=== PATIENT | female | born 1960 | race Caucasian/White ===

== ENCOUNTER 2019-09-19 09:57 | Outpatient (CLI) | payer BC, MEDICARE, SELFPAY ==
--- NOTE | ~2019-09-19 | MM_ITS ---
EXAMINATION: MM screening vijay BI w zamzam HISTORY: Screening mammogram TECHNIQUE: Craniocaudal and mediolateral oblique 3-D tomosynthesis images were obtained and synthetic 2-D images were generated. CAD analysis was submitted and interpreted. COMPARISON: 09/15/2018 bilateral digital screening mammogram 09/04/2017, 03/04/2017, 08/27/2016 bilateral diagnostic digital mammogram and Limited bilateral breast u ltrasound examinations 08/22/2015 bilateral digital screening mammogram BREAST PARENCHYMAL COMPOSITION: There are scattered areas of fibroglandular density. FINDINGS: There are 3 biopsy markers on the left; history of 3 prior benign breast biopsies. There is no evidence of suspicious mass, calcification, or architectural distortion to suggest malignancy in either breast. There has been no suspicious interval change. IMPRESSION: 1. No mammographic evidence of malignancy. 2. Recommend routine screening mammography in one year. BI-RADS Category 1: Negative Reviewed, dictated and finalized at location B. F DEVELOPMENT COORDINATOR
== END 2019-09-19 09:58 | disposition home or self-care (01) ==
LOC: ANHIMG 10:07
PROVIDERS: PCP Emergency Medicine; Visit Provider Emergency Medicine
DX: Z12.31 Encounter for screening mammogram for malignant neoplasm of breast (principal)
CPT/HCPCS: 77063; 77067

== ENCOUNTER 2020-01-25 17:51 | Outpatient (CLI) | payer BC, MEDICARE, SELFPAY ==
--- NOTE | ~2020-01-25 | XR_ITS ---
EXAMINATION: XR knee LT 2V DATE: 01/25/2020 18:15 INDICATION: Left knee pain. TECHNIQUE: 2 views of left knee were obtained. COMPARISON: None. FINDINGS: Bone alignment is normal. No fracture. Joint spaces are normal. No knee joint effusion. IMPRESSION: 1. Normal left knee. Reviewed, dictated and finalized at location A. IMPRESSION: 1. Normal left knee.
== END 2020-01-25 17:52 | disposition home or self-care (01) ==
PROVIDERS: PCP Emergency Medicine; Visit Provider Emergency Medicine
DX: M25.562 Pain in left knee (principal)
CPT/HCPCS: 73560

== ENCOUNTER 2020-02-06 17:18 | Outpatient (CLI) | payer BC, MEDICARE, SELFPAY ==
--- NOTE | ~2020-02-06 | MR_ITS ---
EXAMINATION: MR knee LT wo/w con DATE: 02/06/2020 18:41 INDICATION: Left knee pain TECHNIQUE: Magnetic resonance imaging (MRI) of the left knee was performed without intravenous contra st. Sequences included coronal PD-weighted FSE, coronal PD-weighted FS FSE, sagittal T2-weighted FSE , sagittal PD-weighted FS FSE, axial PD weighted fat saturated FSE, axial T1-weighted FSE, axial T1-w eighted FS FSE and postcontrast axial and sagittal T1-weighted FS FSE . COMPARISON: None. FINDINGS: Medial compartment: Longitudinal horizontal tear contacting the inferior articular surface at the posterior horn of the m edial meniscus. Articular cartilage is normal. Lateral compartment: Lateral meniscus is normal. Articular cartilage is normal. Patellofemoral compartment: Subchondral fissuring along the patellar apical ridge with minimal underlying subarticular edema. Tro chlear cartilage is normal. Ligaments and tendons: Anterior and posterior cruciate ligaments are normal. The medial collateral ligament and fibular gladys ateral ligament complex are normal. The extensor mechanism is normal. The visualized medial and later al hamstring tendons as well as the iliotibial band are normal. Fluid: Physiologic amount of fluid in the joint space. No loose osteochondral bodies identified. Osseous/other: Aside from the minimal subarticular edema at the patella there is normal marrow signal throughout.. N o fracture or pathologic marrow replacing process. No abnormally enhancing lesions identified. IMPRESSION: 1. Likely degenerative longitudinal horizontal tear at the posterior horn of the medial meniscus. 2. 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 Reviewed, dictated and finalized at location A. IMPRESSION: 1. Likely degenerative longitudinal horizontal tear at the posterior horn of th e medial meniscus. 2. 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
[2020-02-06 18:11] LABS: Estimated Glomerular Filt Rate 56
== END 2020-02-06 17:19 | disposition home or self-care (01) ==
PROVIDERS: PCP Emergency Medicine; Visit Provider Emergency Medicine
DX: M25.562 Pain in left knee (principal); S83.242A Other tear of medial meniscus, current injury, left knee, initial encounter; M94.262 Chondromalacia, left knee
CPT/HCPCS: 36415; 73723; A9577

== ENCOUNTER 2020-09-26 08:31 | Outpatient (CLI) | payer BC, MEDICARE, SELFPAY ==
--- NOTE | ~2020-09-26 | MM_ITS ---
EXAMINATION: MM screening vijay BI w zamzam HISTORY: Screening mammogram TECHNIQUE: Craniocaudal and mediolateral oblique 3-D tomosynthesis images were obtained and synthetic 2-D images were generated. CAD analysis was submitted and interpreted. COMPARISON: September 19, 2019 bilateral digital screening mammogram 09/15/2018 bilateral digital screening mammogram 09/04/2017 and 08/27/2016 bilateral diagnostic digital mammogram and Limited bilateral breast ultrasoun d 08/22/2015 bilateral digital screening mammogram BREAST PARENCHYMAL COMPOSITION: There are scattered areas of fibroglandular density. FINDINGS: 3 biopsy markers are again noted on the left; history of 3 prior benign breast biopsies. Some subtle microcalcifications are suggested posteriorly in the outer right breast on craniocaudal v iew; diagnostic right mammogram with magnification views is recommended for more definitive evaluatio n. Otherwise there Is no evidence of suspicious mass, calcification, or architectural distortion to sugg est malignancy in either breast. There has been no other suspicious interval change. IMPRESSION: 1. Subtle microcalcification suggested posteriorly in the outer right breast on screening craniocauda l view 2. Diagnostic right mammogram with magnification views is recommended. BI-RADS Category 0: Incomplete: Needs additional imaging evaluation. Reviewed, dictated and finalized at location A. CONDUCTOR ENGINEER IMPRESSION: 1. Subtle microcalcification suggested posteriorly in the outer right breast on screening craniocaudal view 2. Diagnostic right mammogram with magnification views is recommended. BI-RADS Category 0: Incomplete: Needs additional imaging evaluation.
== END 2020-09-26 08:32 | disposition home or self-care (01) ==
LOC: ANHIMG 08:33
PROVIDERS: PCP Emergency Medicine; Visit Provider Emergency Medicine
DX: Z12.31 Encounter for screening mammogram for malignant neoplasm of breast (principal); R92.8 Other abnormal and inconclusive findings on diagnostic imaging of breast
CPT/HCPCS: 77063; 77067

== ENCOUNTER 2020-09-28 10:28 | Outpatient (CLI) | payer BC, MEDICARE, SELFPAY ==
--- NOTE | 2020-09-28 10:31 | ECG_ITS ---
Measurements Intervals [place] Rate: 69 P: 65 ID: 189 QRS: 48 QRSD: 85 T: 58 QT: 374 QTc: 401 Interpretive Statements SINUS RHYTHM DELAYED PRECORDIAL R/S TRANSITION BASELINE ARTIFACT- I, II, III, AVR, AVL BORDERLINE ECG Electronically Signed On 09-28-2020 11:49:40 PARAFFINER by Dariel Davies D.O.
== END 2020-09-28 10:29 | disposition home or self-care (01) ==
PROVIDERS: PCP Emergency Medicine; Visit Provider Orthopaedic Surgery
DX: E78.00 Pure hypercholesterolemia, unspecified (principal); I10 Essential (primary) hypertension; Z01.818 Encounter for other preprocedural examination; R94.31 Abnormal electrocardiogram [ECG] [EKG]
CPT/HCPCS: 93005

== ENCOUNTER → 2020-09-29 00:27 | Outpatient (CLI) | payer BC, MEDICARE, SELFPAY ==
[2020-09-29 19:48] LABS: SARS-CoV-2 RNA PCR Negative
== END ==
PROVIDERS: PCP Emergency Medicine; Visit Provider Orthopaedic Surgery
DX: Z01.812 Encounter for preprocedural laboratory examination (principal); Z20.822 Contact with and (suspected) exposure to COVID-19
CPT/HCPCS: C9803; U0003; U0005

== ENCOUNTER 2020-10-03 00:54 | Day surgery (SDC) | payer BC, MEDICARE, SELFPAY ==
[2020-09-26 16:19] VITALS: BMI 28.9
--- NOTE | 2020-09-26 16:26 | PC.NURSE ---
PT STATES SHE HAD A BAD EXPERIENCE WITH ANESTHESIA IN THE PAST AT [facility]. SHE HAS A COPY OF THE ANESTHESIA RECORD FROM HER MOST RECENT SURGERY AT [facility] THAT WENT WELL . PT VERY NERVOUS REGARDING ANESTHESIA. PT ALSO STATES SHE HAS CRUTCHES BUT NEEDS CRUTCH TRAINING.
--- NOTE | 2020-10-02 12:23 | WPDANESEPPF ---
Anes - Initial Pre Proc Eval Procedure: Operation Date: 10/03/20 10:30 Proposed Procedures p Left Knee Arthroscopy, Proceed As Indicated - Mando Kumar MD Date/Time: 10/02/20 12:23 Surgeon: Mando Kumar MD Pre Op Diagnosis: Left Knee Medial Meniscus Tear Patient Data Age: 60 Gender: F Height: 1.6 m Weight: 74 kg Allergies Allergy/AdvReac Type Severity Reaction Status Date / Time codeine Allergy Severe Swelling Verified 10/03/20 08:35 desvenlafaxine [From Pristiq] Allergy Severe Swelling Verified 10/03/20 08:35 escitalopram Allergy Severe Swelling Verified 10/03/20 08:35 hydrocodone AdvReac Severe Nausea and Verified 10/03/20 08:35 Vomiting heparin AdvReac Intermediate Unknown Verified 10/03/20 08:35 Heparin Analogues AdvReac Unknown Unknown Verified 10/03/20 08:35 Home Medications Medication Instructions Recorded Confirmed Type cholecalciferol (vitamin D3) 50 5,000 unit PO DAILY 09/20/19 09/26/20 History mcg (2,000 unit) capsule albuterol sulfate 90 mcg/actuation See Rx Instructions .ROUTE 11/10/19 09/26/20 Rx aerosol inhaler .COMPLEX #8.5 gm metoprolol succinate 12.5 mg PO BID PRN 08/23/20 09/26/20 History vitamin B complex 1 tablet PO DAILY 08/23/20 09/26/20 History chlorhexidine gluconate 4 % 1 applic TOPICAL ONCE #237 ml 08/29/20 Rx topical liquid aspirin [Adult Low Dose Aspirin] 81 mg PO DAILY 09/26/20 09/26/20 History naproxen sodium [Aleve] 220 mg PO BID PRN 09/26/20 09/26/20 History Patient hx anesthesia problems: post op nausea/vomiting Family hx anesthesia problems: none PMFSH Past Medical History Medical History Abnormality of heart beat Anxiety Asthma Chronic fatigue Chronic, continuous use of opioids Claustrophobia Depression Fibromyalgia History of adverse effect of anesthesia PVC's (premature ventricular contractions) Wears glasses Surgical History Surgical History History of fusion of cervical spine History of lumbar discectomy Family History Family History Father Malignant neoplasm of prostate Grandparent Family history of malignant neoplasm of cervix Sibling Family history of malignant neoplasm of breast in first degree relative Mother Patient's mother is in good health Other High cholesterol History of esophageal cancer Hypertension Neuropathy Social History Social History Smoking status: Never smoker Second hand tobacco smoke exposure: No Alcohol intake: never Substance use: never Substance use type: does not use Living arrangements: with family Gender identity (if verbalized by the patient): Female Spiritual care concerns: No Anes - Eval Final PreProcedure Day of Procedure 10/02/20 12:23 Patient weight: overweight Heart: regular rate and rhythm Lungs: clear to auscultation and normal air movement Airway: Mallampati scale class II Neurological: alert and oriented Last oral intake: >/= 8 hours ASA classification: III Emergent: no Anesthetic plan: proceed Anesthesia type and monitoring: general LMA and standard monitoring Informed Consent: The patient's anesthetic plan and its attendant risks and benefits were discussed with the patient/family/POA. Questions were solicited and answers provided to the satisfaction of the patient/family/POA.
[2020-10-03] VITALS (11 sets, daily range): BP systolic 100–142; BP diastolic 60–88; PULSE 57–95; RESP 10–20; TEMP 36.1–36.6; O2SAT 96–100
--- NOTE | 2020-10-03 08:02 | PM.IMHP ---
H&P: HPI History of Present Illness Date/Time: 10/03/20 at 0804 Knee Injury/Condition Pt presents with left knee pain that has been present for approx 10 months. She states she was hiking, in October, and twisted her knee at that time. She is experiencing pain in the medial, anterior region of the knee. She occasionally wears an OTC knee brace. She had an MRI 02/06/20. She has been doing exercises at home and has noticed an improvement in her level of pain. Date of injury/condition: 11/01/19 Current symptoms: Reports giving way and stiffness Location: medial, anterior and inferior Character: intermittent, throbbing and dull ache Onset: 7-12 months Exacerbated by: squatting, rotational activities and prolonged activity Previous treatments: Anti-inflammatory meds: left, Ice: left, Heat: left and other: left (home exercises) Improved by treatment/surgery: some Chief Complaint: left knee pain Review of Systems Review of Systems: All systems reviewed & are unremarkable except as noted in HPI and below Constitutional: Constitutional: Denies headache(s) and Denies weakness Eyes: Eyes: Denies blurry vision, Denies change in vision and Denies loss of vision ENT: Denies dizziness, Denies dry mouth, Denies headache(s) and Denies nasal congestion Cardiovascular: Cardiovascular: Denies chest pain, Denies syncope, Denies leg edema and Denies dyspnea on exertion Respiratory: Respiratory: Denies cough and Denies dyspnea on exertion Gastrointestinal: Gastrointestinal: Denies abdominal pain, Denies constipation and Denies diarrhea Genitourinary: Genitourinary: Denies urinary frequency Musculoskeletal: Musculoskeletal: Reports as per HPI and Denies numbness Integumentary/Breasts: Skin/Breast: Reports system reviewed and no additional complaints, except as docu Neurologic: Denies dizziness, Denies syncope, Denies headache(s), Denies loss of vision, Denies numbness and Denies weakness Psychiatric: Psychiatric: Reports no additional psychiatric complaints Endocrine: Endocrine: Reports no additional endocrine complaints Hematologic/Lymphatic: Hematologic/Lymphatic: Reports no additional hematologic/lymphatic complaints PMFSH Past Medical History Medical History Abnormality of heart beat Anxiety Asthma Chronic fatigue Chronic, continuous use of opioids Claustrophobia Depression Fibromyalgia History of adverse effect of anesthesia PVC's (premature ventricular contractions) Wears glasses Surgical History Surgical History History of fusion of cervical spine History of lumbar discectomy Family History Family History Father Malignant neoplasm of prostate Grandparent Family history of malignant neoplasm of cervix Sibling Family history of malignant neoplasm of breast in first degree relative Mother Patient's mother is in good health Other High cholesterol History of esophageal cancer Hypertension Neuropathy Social History Social History Smoking status: Never smoker Second hand tobacco smoke exposure: No Alcohol intake: never Substance use: never Substance use type: does not use Living arrangements: with family Gender identity (if verbalized by the patient): Female Spiritual care concerns: No Meds Home Medications and Allergies Home Medications Medication Instructions Recorded Confirmed Type cholecalciferol (vitamin D3) 50 5,000 unit PO DAILY 09/20/19 09/26/20 History mcg (2,000 unit) capsule albuterol sulfate 90 mcg/actuation See Rx Instructions .ROUTE 11/10/19 09/26/20 Rx aerosol inhaler .COMPLEX #8.5 gm metoprolol succinate 12.5 mg PO BID PRN 08/23/20 09/26/20 History vitamin B complex 1 tablet PO DAILY 08/23/20 09/26/20 History chlorhexidine gluconate 4 % 1 applic TOPICAL ONC
--- NOTE | 2020-10-03 08:05 | WPDHPUPDATE1 ---
History and Physical Update Update Date/Time: 10/03/20 08:05 History and Physical has been reviewed, including an updated exam of the patient. There are NO changes in the patient's condition. Risks, benefits, and alternatives have been discussed and questions answered. Patient agrees to proceed with procedure.
[2020-10-03] MEDS: LACTATED RINGERS 1,000 ML 30 ML IV CONT ×2 (09:03→12:58)
[2020-10-03] MEDS: ACETAMINOPHEN 500 MG TABLET 1000 MG PO (09:03)
[2020-10-03] MEDS: CELECOXIB 200 MG CAPSULE PO (09:03)
[2020-10-03] MEDS: FAMOTIDINE 20 MG/2 ML VIAL IV PUSH (09:46)
[2020-10-03] MEDS: SCOPOLAMINE 1.5 MG PATCH TRANSDERM (09:46)
[2020-10-03] MEDS: ceFAZolin 2 GM/D5W 50 ML 2 GM/50 ML BAG IVPB (11:44)
[2020-10-03] MEDS: BUPIVACAINE HCL 0.5% PF 30 ML VIAL INFILTRATE (12:00)
[2020-10-03] MEDS: fentaNYL CITRATE INJ (*CRX) 100 MCG/2 ML VIAL 25 MCG IV PUSH ×5 (13:37→14:25)
--- NOTE | 2020-10-03 14:06 | PM.PROC ---
Procedure Note - Detailed Date of procedure: 10/03/20 Pre-op diagnosis: Left Knee Medial Meniscus Tear Post-op diagnosis: same Procedure performed: LEFT KNEE SCOPE WITH PARTIAL MEDIAL MENISCECTOMY AND MAJOR SYNOVECTOMY Description of procedure: PATIENT WAS TAKEN TO THE OR. LEFT LEG WAS PREPPED AND DRAPED STERILE. TROCARS WERE PLACED IN THE USUAL FASHION. CAMERA WAS INTRODUCED. THERE WAS MILD CHONDROMALACIA TO THE PATELLA FEMORAL JOINT. THERE WAS A LOT OF SYNOVITIS IN ALL COMPARTMENTS. THE MEDIAL COMPARTMENT SHOWED CHONDROMALACIA TO THE MED FEMORAL CONDYLE. A SHAVER WAS USED TO PREFORM A CHONDROPLASTY. THERE WAS A COMPLEX MEDIAL MENISCUS TEAR. THE TEAR WAS RESECTED WITH A BITER AND A SHAVER DOWN TO A SMOOTH BASE. ABOUT 20% OF THE MENISCUS WAS REMOVED. THE ACL WAS INTACT. THE LATERAL MENISCUS WAS NOT TORN. THE LAT COMPARTMENT HAD NO CHONDROMALACIA. A SYNOVECTOMY WAS PREFORMED. THE PATELLO FEMORAL JOINT UNDERWENT CHONDROPLASTY. SYNOVECTOMY WAS PREFORMED IN THE SUPERIOR MEDIAL COMPARTMENT. THE WOUNDS WERE APPROXIMATED WITH 4.0 NYLON. STERILE DRESSING WAS APPLIED. PATIENT WAS EXTUBATED. Anesthesia: GLMA Surgeon: Mando Kumar MD Estimated blood loss (mL): 5 Complications: No immediate complications Condition: stable Disposition: PACU
== END 2020-10-03 15:45 | disposition home or self-care (01) ==
PROVIDERS: PCP Emergency Medicine; Visit Provider Orthopaedic Surgery
PROC: (CPT 29870; principal; 2020-10-03 10:30)
DX: S83.232A Complex tear of medial meniscus, current injury, left knee, initial encounter (principal); X50.0XXA Overexertion from strenuous movement or load, initial encounter; Y93.01 Activity, walking, marching and hiking; M65.862 Other synovitis and tenosynovitis, left lower leg; M94.262 Chondromalacia, left knee; I49.3 Ventricular premature depolarization; J45.909 Unspecified asthma, uncomplicated; M79.7 Fibromyalgia; F41.8 Other specified anxiety disorders; Z98.1 Arthrodesis status
CPT/HCPCS: 29881; 29876; 93005; A9270; C9803; J0690; J1100; J1200; J2250; J2405; J2704; J3010; J7120; U0003; U0005

== ENCOUNTER 2020-11-12 11:21 | Outpatient (CLI) | payer BC, MEDICARE, SELFPAY ==
--- NOTE | ~2020-11-12 | MM_ITS ---
CORRECTED REPORT w/ zamzam removed. 11/12/20 sef EXAMINATION: MM diagnostic mammo unilat RT HISTORY: Indeterminate right breast calcifications on screening mammogram TECHNIQUE: Additional images of the right breast were performed. CAD analysis was submitted and interpreted. COMPARISON: 09/26/2020, 09/19/2019, 09/15/2018, 09/04/2017 BREAST PARENCHYMAL COMPOSITION: There are scattered areas of fibroglandular density. FINDINGS: There is a solitary chronic benign-appearing calcification in the upper outer quadrant of the right breast. No suspicious group of calcifications is identified. There is no mass or architectural distortion. IMPRESSION: 1. No mammographic evidence of malignancy. 2. Recommend routine screening mammography in one year. BI-RADS Category 2: Benign finding(s). Reviewed, dictated and finalized at location A. MTDD
== END 2020-11-12 11:22 | disposition home or self-care (01) ==
PROVIDERS: PCP Emergency Medicine; Visit Provider Emergency Medicine
DX: R92.0 Mammographic microcalcification found on diagnostic imaging of breast (principal)
CPT/HCPCS: 77061; 77065; G0279

== ENCOUNTER 2021-09-16 01:07 | Day surgery (SDC) | payer BC, MEDICARE, SELFPAY ==
[2021-09-05 08:10] VITALS: BMI 29.7
[2021-09-16 06:28] VITALS: BP 120/65; PULSE 79; RESP 16; TEMP 36.1; O2SAT 99; BMI 29.1
[2021-09-16] MEDS: LACTATED RINGERS 1,000 ML 150 ML IV CONT (06:37)
--- NOTE | 2021-09-16 06:59 | WPDANESEPPF ---
Anes - Initial Pre Proc Eval Procedure: Operation Date: 09/16/21 07:30 Proposed Procedures p Screening Colonoscopy - Ralph Duncan MD Date/Time: 09/16/21 06:59 Surgeon: Ralph Duncan MD Pre Op Diagnosis: neoplasm screening Patient Data Age: 61 Gender: F Height: 1.6 m Weight: 74.6 kg Last Vital Signs Temp 36.1 C L 09/16/21 06:28 Pulse 79 09/16/21 06:28 Resp 16 09/16/21 06:28 BP 120/65 09/16/21 06:28 Pulse Ox 99 09/16/21 06:28 Allergies Allergy/AdvReac Type Severity Reaction Status Date / Time codeine Allergy Severe Swelling Verified 09/16/21 06:26 desvenlafaxine [From Pristiq] Allergy Severe Swelling Verified 09/16/21 06:26 of Lip/Tongue/Throat escitalopram Allergy Severe Swelling Verified 09/16/21 06:26 of Lip/Tongue/Throat hydrocodone Allergy Severe Nausea and Verified 09/16/21 06:26 Vomiting venlafaxine [From Effexor] Allergy Severe Swelling Verified 09/16/21 06:26 of Lip/Tongue/Throat heparin AdvReac Severe Other Verified 09/16/21 06:26 Heparin Analogues AdvReac Severe Other Verified 09/16/21 06:26 Home Medications Medication Instructions Recorded Confirmed Type metoprolol succinate 12.5 mg PO BID PRN 08/23/20 09/05/21 History vitamin B complex 1 tablet PO DAILY 08/23/20 09/05/21 History aspirin 81 mg PO DAILY 09/26/20 09/05/21 History naproxen sodium [Aleve] 220 mg PO BID PRN 09/26/20 09/05/21 History estradiol 10 mcg vaginal tablet 10 mcg VAGINAL 2XW #24 tablet 06/21/21 09/05/21 Rx Dim 200 mg PO DAILY 09/05/21 09/05/21 History Gda Xt 1 tab-cap PO DAILY 09/05/21 09/05/21 History albuterol sulfate [ProAir HFA] 2 puff INHALATION DAILY PRN 09/05/21 09/05/21 History cholecalciferol (vitamin D3) 50 mcg PO 3XW 09/05/21 09/05/21 History [Vitamin D3] chromium picolinate 1,000 mcg PO DAILY 09/05/21 09/05/21 History inositol 1,000 mg PO DAILY 09/05/21 09/05/21 History mv-mn-folic ac-vit K-herb 289 1 tablet PO DAILY 09/05/21 09/05/21 History [Alive Once Daily Women 50 Plus] triamcinolone acetonide See Rx Instructions .ROUTE 09/05/21 09/05/21 History .COMPLEX PRN Patient hx anesthesia problems: none Family hx anesthesia problems: none Results Review: All pre-operative results and documents have been reviewed as part of the pre-operative evaluation. [facility] Past Medical History Medical History Abnormality of heart beat Anxiety Asthma Chronic fatigue Claustrophobia Depression Endometriosis Fibromyalgia History of adverse effect of anesthesia Medial meniscus, posterior horn derangement Miscarriage PVC's (premature ventricular contractions) Wears glasses Surgical History Surgical History H/O laparoscopy History of appendectomy History of breast biopsy History of dilation and curettage History of fusion of cervical spine History of hand surgery History of lumbar discectomy History of total hysterectomy Previous section x 2 Family History Family History Father Esophageal cancer Alcoholism Depression Grandparent Family history of malignant neoplasm of cervix Sibling Breast cancer Alcoholism Asthma Hypertension Heart disease Fibromyalgia Mother Hypertension Other High cholesterol History of esophageal cancer Neuropathy Social History Social History Smoking status: Never smoker Second hand tobacco smoke exposure: No Alcohol intake: current Alcohol use details: WINE Substance use: never Substance use type: does not use Living arrangements: with family Gender identity (if verbalized by the patient): Female Spiritual care concerns: No Anes - Eval Final PreProcedure Day of Procedure 09/16/21 06:59 Patient weight: overweight Heart: r
--- NOTE | 2021-09-16 07:24 | PM.HPGS ---
History of Present Illness History of Present Illness Consent: Risks, benefits, and alternatives have been discussed and questions answered. Patient agrees to proceed with procedure. Chief complaint: neoplasm screening Narrative: Pau Baird is a 61 year old female here for screening colonoscopy, last one 12 years ago. Review of Systems Constitutional: Constitutional: Denies headache(s) and Denies weakness Eyes: Eyes: Denies blurry vision ENT: Reports Normal hearing present, Denies headache(s) and Denies neck pain Cardiovascular: Cardiovascular: Denies chest pain and Denies dyspnea Respiratory: Respiratory: Denies dyspnea Gastrointestinal: Gastrointestinal: Reports no additional gastrointestinal complaints Genitourinary: Genitourinary: Denies dysuria Musculoskeletal: Musculoskeletal: Denies neck pain Integumentary/Breasts: Skin/Breast: Denies dry skin Neurologic: Reports Normal hearing present, Denies headache(s) and Denies weakness Psychiatric: Psychiatric: Denies anxiety Endocrine: Endocrine: Denies change in body appearance Hematologic/Lymphatic: Hematologic/Lymphatic: Denies easy bleeding Allergic/Immunologic: Allergic/Immunologic: Denies urticaria PMFSH Past Medical History Medical History (Updated 09/16/21 @ 07:24 by Ralph Duncan MD) Abnormality of heart beat Anxiety Asthma Chronic fatigue Claustrophobia Colon cancer screening Depression Endometriosis Fibromyalgia History of adverse effect of anesthesia Medial meniscus, posterior horn derangement Miscarriage PVC's (premature ventricular contractions) Wears glasses Surgical History Surgical History H/O laparoscopy History of appendectomy History of breast biopsy History of dilation and curettage History of fusion of cervical spine History of hand surgery History of lumbar discectomy History of total hysterectomy Previous section x 2 Family History Family History Father Esophageal cancer Alcoholism Depression Grandparent Family history of malignant neoplasm of cervix Sibling Breast cancer Alcoholism Asthma Hypertension Heart disease Fibromyalgia Mother Hypertension Other High cholesterol History of esophageal cancer Neuropathy Social History Social History Smoking status: Never smoker Second hand tobacco smoke exposure: No Alcohol intake: current Alcohol use details: WINE Substance use: never Substance use type: does not use Living arrangements: with family Gender identity (if verbalized by the patient): Female Spiritual care concerns: No Meds Home Medications and Allergies Home Medications Medication Instructions Recorded Confirmed Type metoprolol succinate 12.5 mg PO BID PRN 08/23/20 09/05/21 History vitamin B complex 1 tablet PO DAILY 08/23/20 09/05/21 History aspirin 81 mg PO DAILY 09/26/20 09/05/21 History naproxen sodium [Aleve] 220 mg PO BID PRN 09/26/20 09/05/21 History estradiol 10 mcg vaginal tablet 10 mcg VAGINAL 2XW #24 tablet 06/21/21 09/05/21 Rx Dim 200 mg PO DAILY 09/05/21 09/05/21 History Gda Xt 1 tab-cap PO DAILY 09/05/21 09/05/21 History albuterol sulfate [ProAir HFA] 2 puff INHALATION DAILY PRN 09/05/21 09/05/21 History cholecalciferol (vitamin D3) 50 mcg PO 3XW 09/05/21 09/05/21 History [Vitamin D3] chromium picolinate 1,000 mcg PO DAILY 09/05/21 09/05/21 History inositol 1,000 mg PO DAILY 09/05/21 09/05/21 History mv-mn-folic ac-vit K-herb 289 1 tablet PO DAILY 09/05/21 09/05/21 History [Alive Once Daily Women 50 Plus] triamcinolone acetonide See Rx Instructions .ROUTE 09/05/21 09/05/21 History .COMPLEX PRN Allergies Allergy/AdvReac Type Severity Reaction Status Date / Time codeine Allergy Severe Swelling Verified 09/16/21 06:26 desvenlafaxine [From P
[2021-09-16 07:48] VITALS: BP 97/56; PULSE 73; RESP 22; O2SAT 97
[2021-09-16 07:58] VITALS: BP 101/63; PULSE 68; RESP 16; O2SAT 98
[2021-09-16 08:08] VITALS: BP 110/70; PULSE 61; RESP 16; O2SAT 100
== END 2021-09-16 08:18 | disposition home or self-care (01) ==
PROVIDERS: PCP Emergency Medicine; Visit Provider Internal Medicine Gastroenterology
PROC: 0DJD8ZZ Inspection of Lower Intestinal Tract, Via Natural or Artificial Opening Endoscopic (ICD-10-PCS; CPT 45378; principal; 2021-09-16 07:30)
DX: Z12.11 Encounter for screening for malignant neoplasm of colon (principal); K57.30 Diverticulosis of large intestine without perforation or abscess without bleeding; K64.8 Other hemorrhoids; I49.3 Ventricular premature depolarization; J45.909 Unspecified asthma, uncomplicated; F41.8 Other specified anxiety disorders; M79.7 Fibromyalgia; Z79.51 Long term (current) use of inhaled steroids; Z79.82 Long term (current) use of aspirin; Z98.1 Arthrodesis status
CPT/HCPCS: 45378; J2370; J2704; J7120

== ENCOUNTER 2021-09-30 09:32 | Outpatient (CLI) | payer BC, MEDICARE, SELFPAY ==
--- NOTE | ~2021-09-30 | MM_ITS ---
EXAMINATION: MM screening vijay BI w zamzam HISTORY: Screening TECHNIQUE: Craniocaudal and mediolateral oblique 3-D tomosynthesis images were obtained and synthetic 2-D images were generated. CAD analysis was submitted and interpreted. COMPARISON: Comparison to multiple prior studies sequentially, with oldest reviewed study dated 03/04. BREAST PARENCHYMAL COMPOSITION: There are scattered areas of fibroglandular density. FINDINGS: There is no evidence of suspicious mass, calcification, or architectural distortion to sugg est malignancy in either breast. There has been no suspicious interval change. IMPRESSION: 1. No mammographic evidence of malignancy. 2. Recommend routine screening mammography in one year. BI-RADS Category 1: Negative Reviewed, dictated and finalized at location A. TURE METER OPERATOR
== END 2021-09-30 09:33 | disposition home or self-care (01) ==
LOC: ANHIMG 09:35
PROVIDERS: PCP Emergency Medicine; Visit Provider Student in an Organized Health Care Education/Training Program
DX: Z12.31 Encounter for screening mammogram for malignant neoplasm of breast (principal)
CPT/HCPCS: 77063; 77067

== ENCOUNTER 2022-10-03 09:52 | Outpatient (CLI) | payer BC, MEDICARE, SELFPAY ==
--- NOTE | ~2022-10-03 | DEXA_ITS ---
Bone Density Report Name: MARY MCMAHON Age: 62 Sex: Female Ethnicity: White Date of : 1960 Indication: postmenopausal; screening for osteoporosis; hysterectomy; Referring Provider: GRANT KRAUS Study: Bone densitometry was performed. Exam Date: October 03, 2022 Accession number: [id number] Bone Density: Region BMD T-score Z-score Classification AP Spine(L1-L4) 0.783 -2.4 -0.7 Osteopenia Femoral Neck (Left) 0.570 -2.5 -1.0 Osteoporosis Total Hip (Left) 0.671 -2.2 -1.0 Osteopenia Femoral Neck (Right) 0.596 -2.3 -0.8 Osteopenia Total Hip (Right) 0.685 -2.1 -0.9 Osteopenia Total Hip Mean 0.678 -2.2 -1.0 Osteopenia World Health Organization criteria for BMD impression classify patients as: Normal (T-score at or above -1.0), Osteopenia (T-score between -1.0 and -2.5), or Osteoporosis (T-score at or below -2.5). 10-year Fracture Risk: FRAX not reported because: Some T-score for Spine Total or Hip Total or Femoral Neck at or below -2.5 Clinical Information Provided by Patient: Has used the following medications: Vitamin D Has the following medical conditions: Hysterectomy Patient maximum height was 63 Menopause Age: 27 Drinks caffeinated beverages Onset of menses at age 9 Number of children 2 Impression: The patient has osteoporosis, based on the Left Femoral Neck T-score. Discussion: INCREASED RISK OF FRACTURE. BONE DENSITY IS UNDESIRABLY LOW AT ONE OR MORE SKELETAL SITES, CONSISTENT WITH POSTMENOPAUSAL OSTEOPOROSIS. This patient's lowest T-score meets the World Health Organization's (WHO) criteria for osteoporosis at one or more sites (T-score -2.5 or below). In untreated patients, the risk of osteoporotic fracture increases approximately two-fold for each 1.0 SD decrease in T-score. Low bone density is not the only risk factor for fracture; also consider factors such as patient's age, frailty or poor health, risk of falling, risk of injury, previous osteoporotic fracture, family history of osteoporosis, cigarette smoking, low body weight, etc. Not everyone with low bone mineral density has osteoporosis; osteomalacia and other metabolic bone disorders should also be considered. Patients who have osteoporosis should be evaluated for specific diseases and conditions (secondary causes) that may cause or contribute to bone loss. The [place] [employer]ocrinologists (AACE) and National Osteoporosis Foundation (NOF) recommend pharmacologic intervention for all postmenopausal women whose T-score is in this range. The patient should follow a healthful lifestyle (good nutrition with adequate calcium and vitamin D, and appropriate weight-bearing exercise). Follow-Up: Consider a repeat BMD and Vertebral Fracture Assessment (VFA) exam in 2 years or sooner if medically necessa
--- NOTE | ~2022-10-03 | MM_ITS ---
EXAMINATION: MM screening vijay BI w zamzam HISTORY: Screening mammogram TECHNIQUE: Craniocaudal and mediolateral oblique 3-D tomosynthesis images were obtained and synthetic 2-D images were generated. CAD analysis was submitted and interpreted. COMPARISON: September 30, 2021 bilateral screening mammogram examinations November 12, 2020 diagnostic right mammogram September 26, 2020, September 19, 2019, September 15, 2018 bilateral screening mammogram examinations BREAST PARENCHYMAL COMPOSITION: There are scattered areas of fibroglandular density. FINDINGS: History of prior benign left breast biopsies. There is no evidence of suspicious mass, calc ification, or architectural distortion to suggest malignancy in either breast. There has been no susp icious interval change. IMPRESSION: 1. No mammographic evidence of malignancy. 2. Recommend routine screening mammography in one year. BI-RADS Category 1: Negative Reviewed, dictated and finalized at location A. TZ MOUNTER
== END 2022-10-03 09:53 | disposition home or self-care (01) ==
PROVIDERS: PCP Emergency Medicine; Visit Provider Student in an Organized Health Care Education/Training Program
DX: Z12.31 Encounter for screening mammogram for malignant neoplasm of breast (principal); Z78.0 Asymptomatic menopausal state; M85.88 Other specified disorders of bone density and structure, other site; M81.0 Age-related osteoporosis without current pathological fracture; M85.852 Other specified disorders of bone density and structure, left thigh; M85.851 Other specified disorders of bone density and structure, right thigh
CPT/HCPCS: 77063; 77067; 77080

== ENCOUNTER 2022-10-20 11:17 | Outpatient (CLI) | payer BC, MEDICARE, SELFPAY ==
--- NOTE | ~2022-10-20 | XR_ITS ---
XR chest 2V DATE: 10/20/2022 11:52 INDICATION: Cough. Palpitations. TECHNIQUE: 2 views COMPARISON: None FINDINGS: Bilateral moderate hyperinflation. No pulmonary infiltrate or consolidation, pleural effusi on or pulmonary vascular congestion or pneumothorax is detected. Normal heart size. No hilar or mediastinal enlargement. Lower cervical spine interbody surgical fusion. Osteopenia. Thoracic scoliosis. IMPRESSION: Moderate bilateral hyperinflation; no active cardiopulmonary disease Reviewed, dictated and finalized at location B. LOOP MAKER IMPRESSION: Moderate bilateral hyperinflation; no active cardiopulmonary diseas e
== END 2022-10-20 11:18 | disposition home or self-care (01) ==
PROVIDERS: PCP Emergency Medicine; Visit Provider Emergency Medicine
DX: R00.2 Palpitations (principal); R05.8 Other specified cough; R91.8 Other nonspecific abnormal finding of lung field
CPT/HCPCS: 71046

== ENCOUNTER 2023-01-07 11:01 | Outpatient (CLI) | payer BC, MEDICARE, SELFPAY ==
--- NOTE | ~2023-01-07 | US_ITS ---
Thyroid ultrasound. Clinical History: Encounter for other unspecified special exams COMPARISON: 06/06/2009 Findings: Real-time sonography of the thyroid gland was performed. The right lobe measures 4.9 x 1.9 x 2.0 cm. The left lobe measures 4.3 x 1.5 x 2.0 cm. The isthmus is 3 mm in AP diameter. There is an 8 mm spongiform nodule in the right mid to lower thyroid pole. There is a 1.5 x 1.4 x 1.3 cm solid, heterogeneous nodule in the left midpole posteriorly. Portions of the lesion or hypoechoic . Impression: 1.5 cm probable TR-4 nodule in the left thyroid lobe. FNA advised to establish histologic diagnosis. Reviewed, dictated and finalized at location . Impression: 1.5 cm probable TR-4 nodule in the left thyroid lobe. FNA advised to establish histologic diagnosis.
== END 2023-01-07 11:02 | disposition home or self-care (01) ==
PROVIDERS: PCP Emergency Medicine; Visit Provider Registered Nurse
DX: Z01.89 Encounter for other specified special examinations (principal)
CPT/HCPCS: 76536

== ENCOUNTER 2023-01-21 11:09 | Outpatient (CLI) | payer BC, MEDICARE, SELFPAY ==
[2023-01-21 13:57] LABS: Albumin Level 4.5 g/dL (3.5-5.1); Anion Gap 4 mmol/L (8-16); Blood Urea Nitrogen 19 mg/dL (7-17); Calcium 9.7 mg/dL (8.4-10.2); Carbon Dioxide 33 mmol/L (22-30); Chloride 103 mmol/L (98-107); Estimated Glomerular Filt Rate > 60; Glucose 89 mg/dL (65-110); Phosphorus 3.3 mg/dL (2.5-4.5); Potassium 4.5 mmol/L (3.4-5.0); Sodium 140 mmol/L (137-145)
[2023-01-21 14:08] LABS: Parathyroid Intact 111.2 pg/mL (7.5-53.5)
[2023-01-21 14:21] LABS: Vitamin D 25 Hydroxy 46.8 ng/mL
== END 2023-01-21 11:10 | disposition home or self-care (01) ==
LOC: ANHWCLAB 11:10
PROVIDERS: PCP Emergency Medicine; Visit Provider Internal Medicine Endocrinology, Diabetes & Metabolism
DX: M81.0 Age-related osteoporosis without current pathological fracture (principal); E55.9 Vitamin D deficiency, unspecified
CPT/HCPCS: 36415; 80069; 82306; 83970

== ENCOUNTER 2023-02-03 12:32 | Outpatient (CLI) | payer BC, MEDICARE, SELFPAY ==
--- NOTE | ~2023-02-03 | US_ITS ---
EXAMINATION: US FNA w image guidance DATE: 02/03/2023 13:47 INDICATION: 1.5 cm TI RADS 4 left thyroid nodule TECHNIQUE: A time-out was performed to verify the patient's name, date of , and procedure to be performed . The procedure and its benefits and risks were discussed with the patient. Risks specifically discus sed included bleeding and infection. The patient understood the risks and agreed to proceed. The neck was prepped and draped in the usual sterile manner. 3 mL 1% lidocaine was used for local anesthesia . 6 passes were made with a 25G needle into the lesion. Appropriate needle location was documented with continuous sonographic guidance. A sterile bandage was applied. There were no immediate compli cations. FINDINGS: Grayscale ultrasound images demonstrate biopsy needles advanced into a 1.7 cm TI-RADS 4 solid excessi ve hypoechoic nodule in the deep inferior left thyroid. IMPRESSION: 1. Successful ultrasound-guided fine needle aspiration of a 1.7 cm TI RADS 4 left thyroid nodule. Reviewed, dictated and finalized at location A. IMPRESSION: 1. Successful ultrasound-guided fine needle aspiration of a 1.7 cm TI RADS 4 l eft thyroid nodule.
== END 2023-02-03 12:33 | disposition home or self-care (01) ==
PROVIDERS: PCP Emergency Medicine; Visit Provider Internal Medicine Endocrinology, Diabetes & Metabolism
DX: E04.1 Nontoxic single thyroid nodule (principal)
CPT/HCPCS: 10005; 88173; 88305

== ENCOUNTER 2023-02-22 13:55 | Emergency (ER) | payer BC, MEDICARE, SELFPAY ==
--- NOTE | ~2023-02-22 | XR_ITS ---
EXAMINATION: XR finger 3rd RT min 2V DATE: 02/22/2023 14:13 INDICATION: Right hand third digit pain. TECHNIQUE: 4 views of right hand third digit were obtained. COMPARISON: Right knee radiographs 03/26/2012 FINDINGS: Bone alignment is normal. No fracture. There is a benign bone island in third distal phalan x. There is mild osteoarthritis of third distal interphalangeal joint. IMPRESSION: 1. 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 Reviewed, dictated and finalized at location A.
[2023-02-22 14:12] VITALS: BP 133/88; PULSE 67; RESP 16; TEMP 36.4; O2SAT 99
--- NOTE | 2023-02-22 14:16 | ED.UPPEXIN ---
HPI - Extremity Injury (Upper) General Chief Complaint: Extremity Injury, Upper Stated Complaint: jammed rt hand middle finger Source: patient and RN notes reviewed History of Present Illness HPI narrative: 62-year-old female presents to [facility] today complaining right middle finger injury. Patient was making her bed when her hands were under bedsheets eats and she felt a pop come from her right middle finger and developed an intense pain. Since 2 the patient has been unable to straighten the distal part of her right middle finger. Patient complains of swelling and pain to her right middle finger and states that the pain shoots all the way up into her neck. Patient denies any actual injury her hand. Patient used a makeshift finger splint with duct tape and a clothes pin for her right middle finger prior to arrival. Related Data Home Medications Medication Instructions Recorded Confirmed vitamin B complex (B 1 tablet PO DAILY 08/23/20 02/22/23 Complex-Vitamin B12 tablet) aspirin 81 mg tablet 81 mg PO DAILY 09/26/20 02/22/23 naproxen sodium 220 mg tablet 220 mg PO BID PRN Pain 09/26/20 02/22/23 (Aleve) Dim 200 mg PO DAILY 09/05/21 02/22/23 albuterol sulfate 90 mcg/actuation 2 puff inhalation DAILY PRN 09/05/21 02/22/23 aerosol inhaler (ProAir HFA) Shortness Of Breath cholecalciferol (vitamin D3) 50 50 mcg PO 3XW 09/05/21 02/22/23 mcg (2,000 unit) capsule (Vitamin D3) multivit,mineral-folic acid 800 1 tablet PO DAILY 09/05/21 02/22/23 mcg-vit K 100 mcg-herbal no.289 tablet (Alive Once Daily Women 50 Plus) Vitamin D w/Calcium 1 cap BYMOUTH DAILY 01/21/23 02/22/23 calcium carbonate 430 mg calcium 430 mg PO DAILY 02/12/23 02/22/23 (1,000 mg) chewable tablet (Antacid Ultra Strength) Allergies Allergy/AdvReac Type Severity Reaction Status Date / Time codeine Allergy Severe Swelling Verified 02/22/23 14:06 desvenlafaxine [From Pristiq] Allergy Severe Swelling Verified 02/22/23 14:06 of Lip/Tongue/Throat escitalopram Allergy Severe Swelling Verified 02/22/23 14:06 of Lip/Tongue/Throat hydrocodone Allergy Severe Nausea and Verified 02/22/23 14:06 Vomiting venlafaxine [From Effexor] Allergy Severe Swelling Verified 02/22/23 14:06 of Lip/Tongue/Throat heparin AdvReac Severe Other Verified 02/22/23 14:06 Heparin Analogues AdvReac Severe Other Verified 02/22/23 14:06 Review of Systems Review of Systems: CONSTITUTIONAL: Denies fever, chills, or sweats. EYES: Denies visual changes, redness, or discharge. ENT: Denies otalgia and sore throat CARDIOVASCULAR: Denies chest pain, palpitations, or edema. RESPIRATORY: Denies cough or dyspnea. GASTROINTESTINAL: Denies abdominal pain, nausea, vomiting, or diarrhea. GENITOURINARY: Denies dysuria or hematuria. SKIN: Denies rash or itching. MUSCULOSKELETAL: Right middle finger pain NEUROLOGIC: Denies headache, numbness, or weakness. Pertinent positives per HPI. PMFSH Past Medical History Medical History Abnormality of heart beat Anxiety Asthma Chronic fatigue Claustrophobia Colon cancer screening Depression Endometriosis Fatigue Fibromyalgia History of adverse effect of anesthesia Medial meniscus, posterior horn derangement Migraine with aura and without status migrainosus, not intractable Miscarriage Osteoporosis Palpitation PVC's (premature ventricular contractions) Wears glasses Surgical History Surgical History H/O laparoscopy History of appendectomy History of breast biopsy History of dilation and curettage History of fusion of cervical spine History of hand surgery History of lumbar discectomy History of total hysterectomy Previous section x 2 Family History Family History Father Esophageal cancer
== END 2023-02-22 14:42 | disposition home or self-care (01) ==
PROVIDERS: Emergency Provider Nurse Practitioner Family; PCP Emergency Medicine
DX: M20.011 Mallet finger of right finger(s) (principal); J45.909 Unspecified asthma, uncomplicated; N80.9 Endometriosis, unspecified; M79.7 Fibromyalgia; M81.0 Age-related osteoporosis without current pathological fracture; Z79.82 Long term (current) use of aspirin
CPT/HCPCS: 29130; 73140; 99213; A9270; G0463

== ENCOUNTER 2023-02-24 13:12 | Outpatient (CLI) | payer BC, MEDICARE, SELFPAY ==
--- NOTE | ~2023-02-24 | XR_ITS ---
XR shoulder RT min 2V DATE: 02/24/2023 13:47 INDICATION: Right shoulder injury, strain, pain TECHNIQUE: 4 views COMPARISON: None FINDINGS: Postsurgical change in the lower cervical spine. Scoliosis of the thoracic spine. Normal alignment at the acromioclavicular and glenohumeral joints. No fracture, dislocation, perioste al reaction or bone destruction or significant abnormal calcification of the right shoulder is eviden t. IMPRESSION: No significant radiographic abnormality of the right shoulder Reviewed, dictated and finalized at location A.
== END 2023-02-24 13:13 | disposition home or self-care (01) ==
PROVIDERS: PCP Emergency Medicine; Visit Provider Emergency Medicine
DX: M25.511 Pain in right shoulder (principal)
CPT/HCPCS: 73030

== ENCOUNTER 2023-04-10 07:53 | Outpatient (CLI) | payer BC, MEDICARE, SELFPAY ==
--- NOTE | ~2023-04-10 | NM_ITS ---
EXAMINATION: NM parathyroid imaging w spect DATE: 04/10/2023 11:29 INDICATION: Hyperparathyroidism. TECHNIQUE: 19.4 mCi Tc99m sestamibi was administered intravenously. Anterior images of the neck were obtained immediately and at 2 hours. SPECT images of the neck were obtained. COMPARISON: None. FINDINGS: There is no focus of persistent activity in the area of the thyroid or mediastinum to sugge st parathyroid adenoma. IMPRESSION: 1. No evidence of a parathyroid adenoma. Reviewed, dictated and finalized at location A.
== END 2023-04-10 07:54 | disposition home or self-care (01) ==
PROVIDERS: PCP Emergency Medicine; Visit Provider Internal Medicine Endocrinology, Diabetes & Metabolism
DX: E21.3 Hyperparathyroidism, unspecified (principal)
CPT/HCPCS: 78071; A9500

== ENCOUNTER 2023-05-19 15:00 | Outpatient (RCR) | payer BC, MEDICARE, SELFPAY ==
--- NOTE | 2023-03-06 11:48 | OTOPEVAL1 ---
Assessment and note entered by Wil Longo, LADY/Diamante, CHT Evaluation Information Assessment Status Evaluation Diagnosis Mallet finger of right middle finger Subjective Information Initial injury 02/22/23. Patient self splinted in extension and then was issued a mallet splint at MD office the next day. She presents today for fabrication of custom splints. One for regular wear and one for showers/pool. She is right hand dominant. Reported Pain Level Pain Score 5: Self Report Assessment OT Clinical Summary Patient referred to outpatient hand therapy with dx of mallet finger on the right middle finger. Today, 2 custom DIP orthotics were fabricated with the DIP in 15 degrees of hyperextension. She is able to actively flex the MCP and PIP to 90 degrees with the splint donned. She demonstrates excellent understanding of keeping the DIP in hyperextension when out of her splint. Plan to have the patient return in 2 weeks to follow up on splint wearing and for any splinting adjustments, otherwise plan to have her return at 6 weeks to begin active ROM of the DIP joint. Plan of Care Interventions Therapeutic Exercise,Manual Therapy,Therapeutic Activities,Check Out for Orthotic/Pr,Paraffin OT Services Indicated Yes Treatment Frequency and 0-1x/week for 6 weeks Duration Patient being seen on an as needed basis for the 6 weeks. These treatments will address the objective and functional deficits as defined above. The patient will be advanced safely and appropriately in order for the patient to progress towards his/her prior level of function. Additional exercises will be introduced and as well as a comprehensive home exercise program upon discharge, if needed, ?to ensure carryover of functional gains achieved in the clinic. This treatment plan has been reviewed and agreement upon by the patient.
--- NOTE | 2023-03-06 11:48 | OPREHPOC ---
Outpatient Therapy Plan of Care This is a Multidisciplinary Plan of Care that may contain components documented by all disciplines (PT, OT, and ST.) OT Problem 1 OT Problem #1 Knowledge Deficit OT Goal 1 Goal 1. Patient to be independent with all materials. Target Visit 4 OT Problem 2 OT Problem #2 Impaired Range of Motion OT Goal 1 Goal 1. Patient to continue to be able to wear DIP splint x6 weeks with the DIP in 15 degrees of hyperextension. Target Visit 4
--- NOTE | 2023-04-22 11:47 | OTOPEVAL1 ---
Assessment and note entered by Wil Longo, LADY/Diamante, CHT OT Progress Report 04/22/23 Assessment Status Progress Diagnosis Mallet finger of right middle finger Subjective Information Patient presents today following 6 weeks of immobilizing to begin ROM. She is reporting some sensitivity on the finger. Reported Pain Level Additional Pain Score Comments Patient reporting 6-8/10 pain with active ROM. Assessment OT Clinical Summary Patient referred to outpatient hand therapy with dx of mallet finger on the right middle finger. She has done well with splinting. She presents today to begin ROM. The DIP remains in full extension without the splint on and there is no lag. She has been instructed in active ROM exercises for the MCP/PIP/DIP joints of the fingers. Educated on performing these 4 times a day, returning to splint wearing between exercises sessions. Per MD she should be removing the splint for 30 min sessions. Continued skilled OT indicated for instructions on weaning out of the splint as well as use of thermal modalities for pain management and improved flexibility. Plan of Care Interventions Therapeutic Exercise,Therapeutic Activities,Check Out for Orthotic/Pr,Paraffin OT Services Indicated Yes Treatment Frequency and 1x/week for 3 weeks Duration These treatments will address the objective and functional deficits as defined above. The patient will be advanced safely and appropriately in order for the patient to progress towards his/her prior level of function. Additional exercises will be introduced and as well as a comprehensive home exercise program upon discharge, if needed, ?to ensure carryover of functional gains achieved in the clinic. This treatment plan has been reviewed and agreement upon by the patient.
--- NOTE | 2023-04-22 11:48 | OPREHPOC ---
Outpatient Therapy Plan of Care This is a Multidisciplinary Plan of Care that may contain components documented by all disciplines (PT, OT, and ST.) OT Problem 1 OT Problem #1 Knowledge Deficit OT Goal 1 Goal 1. Patient to be independent with all materials. ---POC UPDATE 03/19/23--- 1. Met, continue ---OT POC UPDATE 04/22/23-- 1. Met, continue Target Visit 6 OT Problem 2 OT Problem #2 Impaired Range of Motion OT Goal 1 Goal 1. Patient to continue to be able to wear DIP splint x6 weeks with the DIP in 15 degrees of hyperextension. ---POC UPDATE 03/19/23--- 1. Doing well, continue for full 6 weeks. ---OT POC UPDATE 04/22/23-- 1. Met. New ROM goals: 1. Patient to be able to make a hook fist with no gap between the finger tips and the DPC. 2. Patient to remain at 0* DIP extension and to independently monitor for signs of extensor lag. Target Visit 6
--- NOTE | 2023-05-19 15:32 | OTOPPROG ---
Assessment and note entered by Wil Longo, BALBINAR/Diamante, CHT Progress Report 05/19/23 Diagnosis Mallet finger of right middle finger Subjective Information Patient presents today for reassessment. She has been weaning out of her splint over the past 4 weeks. She had been doing well, ROM has improved, able to make a fist more comfortably now. However she has intermittent swelling in the middle finger that fluctuates. She comes in today reporting that yesterday she had a bad episode of pain, reporting sharp increase of 10/10 pain. She reports being unable to pinpoint any sort of activity that would have caused the sudden on set of pain and increased swelling. She did end up putting the splint back on yesterday, but otherwise had been going without the splint. Assessment OT Clinical Summary Patient referred to outpatient hand therapy with dx of mallet finger on the right middle finger. She has done well with weaning out of the splint and was progressing well until yesterday. She reports sudden onset of pain and swelling and was unable to straighten the DIP joint. She comes in today with intact ROM, but still some swelling and redness. Recommend she goes back to splint wearing PRN, to continue gentle ROM, and icing the finger. She plans to follow up with MD next week, 05/27, and will have her follow up with therapy after this as needed. Plan of Care Interventions Therapeutic Exercise,Therapeutic Activities,Check Out for Orthotic/Pr,Paraffin OT Services Indicated Yes Treatment Frequency and 1x/week for 3 weeks Duration These treatments will address the objective and functional deficits as defined above. The patient will be advanced safely and appropriately in order for the patient to progress towards his/her prior level of function. Additional exercises will be introduced and as well as a comprehensive home exercise program upon discharge, if needed, ?to ensure carryover of functional gains achieved in the clinic. This treatment plan has been reviewed and agreement upon by the patient.
--- NOTE | 2023-06-01 14:20 | OTOPDC ---
Assessment and note entered by LADY Desai/Diamante, CHT Discharge Notification 06/01/23 OT Clinical Summary Please refer to last progress note, dated 05/19/23, for most recent updated summary on patient's progress. Spoke with the patient on the phone today who reports she continues to have the fluctuating pain and edema in the middle finger. She reports she is going to give it more time and continue her HEP. She is currently independent with ROM as well as using a compression sleeve PRN for pain and swelling. Plan to discharge OT today with patient independent with all materials.
== END 2023-06-01 15:02 | disposition home or self-care (01) ==
LOC: ANHOT 15:00
PROVIDERS: PCP Emergency Medicine; Visit Provider Plastic Surgery
DX: M20.011 Mallet finger of right finger(s) (principal)
CPT/HCPCS: 97018; 97110; 97140; 97165; 97763; L3933

== ENCOUNTER 2023-10-27 09:44 | Outpatient (CLI) | payer BC, MEDICARE, SELFPAY ==
--- NOTE | ~2023-10-27 | MM_ITS ---
EXAMINATION: MM screening vijay BI w zamzam HISTORY: Screening mammogram TECHNIQUE: Craniocaudal and mediolateral oblique 3-D tomosynthesis images were obtained and synthetic 2-D images were generated. CAD analysis was submitted and interpreted. COMPARISON: October 03, 2022, September 30, 2021 bilateral screening mammogram examinations BREAST PARENCHYMAL COMPOSITION: There are scattered areas of fibroglandular density. FINDINGS: Biopsy markers are again noted on the left There is no evidence of suspicious mass, calcifi cation, or architectural distortion to suggest malignancy in either breast. There has been no suspici ous interval change. IMPRESSION: 1. No mammographic evidence of malignancy. 2. Recommend routine screening mammography in one year. BI-RADS Category 1: Negative Reviewed, dictated and finalized at location A.
== END 2023-10-27 09:45 | disposition home or self-care (01) ==
PROVIDERS: PCP Emergency Medicine; Visit Provider Emergency Medicine
DX: Z12.31 Encounter for screening mammogram for malignant neoplasm of breast (principal)
CPT/HCPCS: 77063; 77067

== ENCOUNTER 2024-05-26 08:26 | Outpatient (CLI) | payer BC, MEDICARE, SELFPAY ==
--- NOTE | ~2024-05-26 | US_ITS ---
EXAMINATION: US thyroid DATE: 05/26/2024 09:16 INDICATION: Thyroid nodule. TECHNIQUE: Multiple ultrasound images of the thyroid were obtained. COMPARISON: Ultrasound 01/07/2023 FINDINGS: The right thyroid lobe measures 3.6 x 1.6 x 1.7 cm. The left thyroid lobe measures 3.7 x 1.5 x 1.2 c m. In the right thyroid lobe, there is a 7 mm solid, hypoechoic, wider than tall nodule with lobulat ed margin without echogenic foci (TI-RADS TR4). In the left thyroid lobe, there is a 7 mm solid, isoe choic, wider than tall nodule with ill-defined margin without echogenic foci (TR3). In the left thyro id lobe, there is a 13 mm solid, hypoechoic, wider than tall nodule with lobular margin without echog enic foci (TR4), stable from 01/07/23. Biopsy on 02/03/23 was benign. IMPRESSION: 1. Thyroid nodules, likely not clinically significant. No follow-up is needed. Reviewed, dictated and finalized at location A.
== END 2024-05-26 08:27 | disposition home or self-care (01) ==
PROVIDERS: PCP Emergency Medicine; Visit Provider Nurse Practitioner Family
DX: E04.2 Nontoxic multinodular goiter (principal)
CPT/HCPCS: 76536

== ENCOUNTER 2024-07-05 11:01 | Outpatient (CLI) | payer BC, MEDICARE, SELFPAY ==
--- NOTE | 2024-07-05 11:05 | ECHO_ITS ---
Patient Info Name: Pau Baird Age: 64 years : 1960 Gender: Female Ht: 63 in Wt: 176 lbs BSA: 1.91 m2 HR: 86 bpm BP: 126 / 54 mmHg Heart Rhythm: Sinus Rhythm Technical Quality: Good Exam Date: 07/05/2024 11:54 AM Exam Location: Echo Lab Patient Status: Outpatient Admit Date: 07/05/2024 Staff Ordering Physician: Dariel Davies DO Check And Transfer Beader: Lorene Rosario RDCS Attending Provider: Dariel Davies DO Referring Physician: Samson CASTREJON; Exam Type: CA echo doppler color flow Study Info Indications R06.09 - Other forms of dyspnea Complete two-dimensional, color flow and Doppler transthoracic echocardiogram is performed. Summary 1. Complete two-dimensional, color flow and Doppler transthoracic echocardiogram is performed. 2. Left ventricular chamber dimension is normal. 3. Left ventricular systolic function is normal, estimated at 60-65%. 4. The left ventricular diastolic function is grade I diastolic dysfunction. 5. E/e' 12 is mildly elevated. 6. There is mild aortic valve sclerosis. 7. There is trace aortic valve regurgitation. 8. There is mild mitral valve regurgitation. 9. There is trace tricuspid valve regurgitation. 10. No pulmonary hypertension, estimated pulmonary arterial systolic pressure is 25 mmHg. 11. There is trace pulmonic regurgitation. Left Ventricle E/e' 12 is mildly elevated. Left ventricular chamber dimension is normal. Left ventricular systolic function is normal, estimated at 60-65%. The left ventricular diastolic function is grade I diastolic dysfunction. Right Ventricle Right ventricular systolic function is normal and with normal TAPSE 2.0 cm. Right ventricular chamber dimension is normal. Left Atria Left atrial chamber dimension is normal. Right Atria Right atrial chamber dimension is normal. Aortic Valve The aortic valve is trileaflet. There is mild aortic valve sclerosis. There is no aortic valve stenosis. There is trace aortic valve regurgitation. Pulmonic Valve There is trace pulmonic regurgitation. Mitral Valve There is no mitral valve stenosis. There is mild mitral valve regurgitation. Tricuspid Valve There is trace tricuspid valve regurgitation. No pulmonary hypertension, estimated pulmonary arterial systolic pressure is 25 mmHg. Pericardium/Pleural There is no pericardial effusion. Inferior Vena Cava Normal inferior vena cava with >50% collapse upon inspiration consistent with normal right atrial pressure, 5 mmHg. Aorta The aortic root size at the sinus of Valsalva is normal. Left Ventricular Outflow Tract Name Value Normal LVOT 2D LVOT Diameter 2.0 cm LVOT Doppler LVOT Peak Gradient 6 mmHg LVOT Mean Gradient 2 mmHg LVOT VTI 23 cm LVOT VTI/AV VTI Ratio 0.8 LVOT Stroke Volume 71 ml LVOT CO 5.1 l/min LVOT CI 2.7 l/min/m2 Pulmonic Valve Name Value Normal RVOT Doppler RVOT Peak Gradient 2 mmHg PV Doppler PV Peak Gradient 4 mmHg Mitral Valve Name Value Normal MV Doppler MV Decel [place] 390 cm/s2 MV PHT 70 ms MV Area (PHT) 3.1 cm2 4.0-5.0 MV Diastolic Function MV E Peak Velocity 95 cm/s MV A Peak Velocity 107 cm/s MV E/A 0.9 MV Decel Time 243 ms MV Annular TDI MV E/e' (Septal) 14.4 <=8.0 MV E/e' (Lateral) 10.4 <=8.0 MV E/e' (Average) 12.4 Tricuspid Valve Name Value Normal TV Regurgitation Doppler TR Peak Velocity 225 cm/s TR Peak Gradient 20 mmHg Estimated PAP/RSVP RA Pressure 5 mmHg <=5 PA Systolic Pressure 25 mmHg <36 RV Systolic Pressure 25 mmHg <36 Aorta Name Value Normal Ascending Aorta Ao Root Diameter (MM) 2.9 cm Ao Root Diam Index (MM) 1.5 cm/m2 Aortic Valve Name Value Normal AV Doppler AV Peak Velocity 148 cm/s AV Peak Gradient 9 mmHg AV Mean Gradient 4 mmHg AV VTI 28 cm AV Area (Cont Eq VTI) 2.5 cm2 >=3.0 AV Area (Cont Eq Elroy) 2.5 cm2 AV Regurgitation 2D LVOT Area 3.1 cm2 AV Regurgitation Doppler AR Decel Time 1,617 ms AR Decel [place] 295 cm/s2 AR PHT 469 ms Ventricles Name Value Normal LV Dimensions 2D/MM IVS Diastolic Thickness (2D) 0.9 cm 0.6-1.0 LVID Diastole (2D) 4.4 cm 3.8-5.2 LVIW Diastolic Thickness (2D) 0.8 cm 0.6-0.9 LVID Systole (2D) 2.4 cm 2.2-3.5 LVOT Diameter 2.0 cm LV Mass (2D Cubed) 118.81 g 67.00-162.00 LV Mass Index (2D Cubed) 62 g/m2 43-95 Relative Wall Thickness (2D) 0.35 LV Fractional Shortening/Ejection Fraction 2D/MM LV Fractional Shortening (2D) 46 % 27-45 LV EF (2D Teicholz) 77 % 54-74 LV Diastolic Volume (4C MOD) 70 ml LV EF (4C MOD) 75 % LV Diastolic Volume (2C MOD) 65 ml LV EF (2C MOD) 65 % LV Diastolic Volume (BP MOD) 69 ml 46-106 LV Diastolic Volume Index (BP MOD) 36 ml/m2 29-61 LV Systolic Volume (BP MOD) 21 ml 14-42 LV Systolic Volume Index (BP MOD) 11 ml/m2 8-24 LV EF (BP MOD) 69 % 54-74 LV Diastolic Length (4C) 6.9 cm LV Systolic Length (4C) 5.2 cm LV Stroke Volume (4C MOD) 53 ml Atria Name Value Normal LA Dimensions LA Dimension (MM) 3.4 cm 2.7-3.8 LA Volume (4C A-L) 36 ml LA Volume (BP A-L) 40 ml RA Dimensions RA Area (4C) 11.7 cm2 <=18.0 Report Signatures
--- NOTE | 2024-07-05 11:05 | EST_ITS ---
Patient Info Name: Pau Baird Age: 64 years : 1960 Gender: Female Ht: 63 in Wt: 176 lbs BSA: 1.91 m2 HR: 86 bpm BP: 126 / 54 mmHg Exam Date: 07/05/2024 11:14 AM Exam Location: Echo Lab Patient Status: Outpatient Admit Date: 07/05/2024 Staff Ordering Physician: Dariel Davies DO Attending Provider: Dariel Davies DO Exercise Technologist: Lorene Rosario RDCS Exercise Physician: Dariel Davies DO Exam Type: CA stress test treadmill Study Info A treadmill exercise stress test was performed. Summary 1. 1. Negative Cheng exercise stress test for ischemic ST changes by ECG criteria. 2. 2. Reduced functional capacity, achieving 7 METs of workload. 3. 3. Appropriate HR response to exercise. 4. 4. Appropriate HR recovery at 1 minute post exercise. 5. 5. No imaging with stress testing. 6. 6. Patient informed of the above results. Protocol: Cheng Stress ECG Details Stage: REST Duration (min): 3 min : 48 sec Speed (mph): 0.0 Grade (%): 0 HR (bpm): 80 SBP (mmHg): 126 DBP (mmHg): 54 METS: --- Stage: REST Duration (min): 4 min : 50 sec Speed (mph): 0.0 Grade (%): 0 HR (bpm): 109 SBP (mmHg): 126 DBP (mmHg): 54 METS: --- Stage: STAGE 1 Duration (min): 1 min : 0 sec Speed (mph): 1.7 Grade (%): 10 HR (bpm): 125 SBP (mmHg): 126 DBP (mmHg): 54 METS: --- Stage: STAGE 1 Duration (min): 2 min : 0 sec Speed (mph): 1.7 Grade (%): 10 HR (bpm): 126 SBP (mmHg): 126 DBP (mmHg): 54 METS: --- Stage: STAGE 1 Duration (min): 3 min : 0 sec Speed (mph): 1.7 Grade (%): 10 HR (bpm): 136 SBP (mmHg): 124 DBP (mmHg): 65 METS: --- Stage: STAGE 2 Duration (min): 1 min : 0 sec Speed (mph): 2.5 Grade (%): 12 HR (bpm): 142 SBP (mmHg): 124 DBP (mmHg): 65 METS: --- Stage: STAGE 2 Duration (min): 2 min : 0 sec Speed (mph): 2.5 Grade (%): 12 HR (bpm): 143 SBP (mmHg): 160 DBP (mmHg): 64 METS: --- Stage: STAGE 2 Duration (min): 2 min : 0 sec Speed (mph): 2.5 Grade (%): 12 HR (bpm): 143 SBP (mmHg): 160 DBP (mmHg): 64 METS: --- Stage: RECOVERY Duration (min): 0 min : 59 sec Speed (mph): 0.0 Grade (%): 0 HR (bpm): 127 SBP (mmHg): 160 DBP (mmHg): 64 METS: --- Stage: RECOVERY Duration (min): 1 min : 59 sec Speed (mph): 0.0 Grade (%): 0 HR (bpm): 111 SBP (mmHg): 160 DBP (mmHg): 64 METS: --- Stage: RECOVERY Duration (min): 2 min : 59 sec Speed (mph): 0.0 Grade (%): 0 HR (bpm): 94 SBP (mmHg): 153 DBP (mmHg): 79 METS: --- Stage: RECOVERY Duration (min): 3 min : 34 sec Speed (mph): 0.0 Grade (%): 0 HR (bpm): 94 SBP (mmHg): 153 DBP (mmHg): 79 METS: --- Rest HR: 109 bpm Peak HR: 144 bpm Rest Sys BP: 126 mmHg Peak Sys BP: 160 mmHg Max Pred HR: 154 bpm % Max Pred HR: 94 % Target HR: 131 bpm Max RPP: 23,040 bpm*mmHg Guillaume Score: 1 Termination Reason: Reached target heart rate or workload Cardiac Symptoms: Shortness of breath Max ST Seg Deviation: 0.80 mm Total Time: 5 min : 0 sec Rest Pedersen BP: 54 mmHg Peak Pedersen BP: 76 mmHg Angina Score: None Total METS: 7.1 Resting ECG Sinus rhythm. Stress ECG No ST changes. Arrhythmias None. Report Signatures
== END 2024-07-05 11:02 | disposition home or self-care (01) ==
LOC: ANHCARD 11:02
PROVIDERS: PCP Emergency Medicine; Visit Provider Internal Medicine Cardiovascular Disease
DX: R07.9 Chest pain, unspecified (principal)
CPT/HCPCS: 93017; 93306

== ENCOUNTER 2024-10-28 09:57 | Outpatient (CLI) | payer BC, MEDICARE, SELFPAY ==
--- NOTE | ~2024-10-28 | DEXA_ITS ---
Bone Density Report Name: MARY MCMAHON Age: 64 Sex: Female Ethnicity: White Date of : 1960 Indication: osteopenia; monitoring treatment; parental hip fracture; hysterectomy; Referring Provider: IVETH AGUILAR Study: Bone densitometry was performed. Exam Date: October 28, 2024 Accession number: [id number] Bone Density: Region BMD T-score Z-score Classification AP Spine(L1-L4) 0.878 -1.5 0.3 Osteopenia Femoral Neck (Left) 0.564 -2.6 -1.0 Osteoporosis Total Hip (Left) 0.718 -1.8 -0.5 Osteopenia Femoral Neck (Right) 0.626 -2.0 -0.4 Osteopenia Total Hip (Right) 0.748 -1.6 -0.3 Osteopenia Total Hip Mean 0.733 -1.7 -0.4 Osteopenia World Health Organization criteria for BMD impression classify patients as: Normal (T-score at or above -1.0), Osteopenia (T-score between -1.0 and -2.5), or Osteoporosis (T-score at or below -2.5). 10-year Fracture Risk: FRAX not reported because: Some T-score for Spine Total or Hip Total or Femoral Neck at or below -2.5 Treated for osteoporosis Previous Exams: Region Exam Age BMD T-score BMD Change BMD Change Date g/cm2 vs Baseline vs Previous AP Spine (L1-L4) 10/28/2024 64 0.878 -1.5 0.095 (12.2%)* 0.095 (12.2%)* 10/03/2022 62 0.783 -2.4 Total Hip(Left) 10/28/2024 64 0.718 -1.8 0.047 (7.0%)* 0.047 (7.0%)* 10/03/2022 62 0.671 -2.2 Total Hip(Right) 10/28/2024 64 0.748 -1.6 0.063 (9.2%)* 0.063 (9.2%)* 10/03/2022 62 0.685 -2.1 *Denotes significance at 95% confidence level, LSC for AP Spine = 0.022 g/cm2, LSC for Total Hip = 0.027 g/cm2 Clinical Information Provided by Patient: Parent has had a hip fracture Is being treated for osteoporosis Has used the following medications: Boniva (i.e. ibandronate), Fosamax (i.e. alendronate), HRT (i.e. estrogen/hormone therapy), Vitamin D, Calcium Has the following medical conditions: Hysterectomy Patient maximum height was 63 Menopause Age: 27 Drinks caffeinated beverages Onset of menses at age 9 Number of children 2 Impression: The patient has osteoporosis, based on the Left Femoral Neck T-score. The patient has risk factors, including: parental hip fracture. No significant bone loss was observed. Discussion: PATIENT UNDER TREATMENT WITH NO SIGNIFICANT BMD LOSS SINCE LAST EXAM. In an untreated patient, BMD typically declines with age. A lack of decline or gain is usually a sign that treatment is efficacious and fracture risk is reduced. It is important to ask patients whether they are taking their medications and to encourage continued and appropriate compliance with their osteoporosis therapies to reduce fracture risk. It is also important to review their risk factors and encourage appropriate calcium and vitamin D intakes, exercise, fall prevention and other lifestyle measures. Follow-Up: Consider a repeat BMD and Vertebral Fracture Assessment (VFA) exam in 2 years or sooner if medically necessary, to reassess this patient's status. Reported by: KATIE on 10/28/2024 10:44:00 AM. Reviewed, dictated and finalized at location [facility] KOEHLER
--- NOTE | ~2024-10-28 | MM_ITS ---
EXAMINATION: MM screening vijay BI w zamzam HISTORY: Screening mammogram, family history of breast cancer in her sister. TECHNIQUE: Craniocaudal and mediolateral oblique 3-D tomosynthesis images were obtained and synthetic 2-D images were generated. CAD analysis was submitted and interpreted. COMPARISON: 10/27/2023, 10/03/2022, 09/30/2021, 11/12/2020 BREAST PARENCHYMAL COMPOSITION:Not Dense. There are scattered areas of fibroglandular density. FINDINGS: No suspicious mass, calcification, or architectural distortion are identified in either minerva ast to suggest malignancy. There has been no suspicious interval change. IMPRESSION: No mammographic evidence of malignancy. Recommend routine screening mammography in one year. BI-RADS Category 1: Negative Reviewed, dictated and finalized at location .
--- OUTSIDE RECORDS SUMMARY | 2024-10-28 10:42 | XMS_ITS | Patient Health Summary ---
Author Organization [facility] Address [address] [place] [address] Care Team Providers Care Principal Technical Writer Name Role Phone Mauricio Cheng MD Unavailable Viktor Barron MD Primary Care Provider [phone] Note from [facility],non-owned Affiliates and Associated Physician Practices is amultiple site organization consisting of ambulatory clinics and hospital sitesin [place], [place], [place] and [place]. This disclosure is being madepursuant to the Care Everywhere program and may not contain all information available regarding this patient. Last updated 18.[facility] icix Allergies * Codeine(Nausea and/or Vomiting) * Heparin(Hematologic) * Escitalopram(Urticaria) * Desvenlafaxine(Swelling) Medications * Be aware that medications may not be up to date on this document. Alwaysverify current medications with the patient. * ibuprofen (MOTRIN) 200 MG tablet Take 200 mg by mouth every 6 hours as needed for Pain * albuterol HFA (PROVENTIL HFA) 108 (90 BASE) MCG/ACT inhaler(Started 05/07/2015) Inhale 2 Puffs by mouth once daily as needed 1 refill left * meclizine (ANTIVERT) 25 MG tablet(Started 11/05/2015) Take 1 Tab by mouth 3 times daily as needed for Dizziness * aspirin (ASPIRIN) 81 MG tablet Take 81 mg by mouth once daily * estradiol (ESTRACE) 0.1 MG/GM vaginal cream(Started 03/09/2017) Insert 2g into vagina nightly for 1-2 weeks and then 1g twice weekly 1 refill remaining * azelastine (ASTEPRO) 205.5 MCG/SPRAY nasal spray(Started 11/11/2017) [place] 2 sprays into each nostril 2 times daily as needed Reasons: PRN 3 refills remaining * ALPRAZolam (XANAX) 0.25 MG tablet(Started 09/22/2018) * sertraline (ZOLOFT) 50 MG tablet Take 50 mg by mouth once daily * vitamin B-12 (CYANOCOBALAMIN) 500 MCG tablet Take 500 mcg by mouth * metoprolol tartrate (LOPRESSOR) 25 MG tablet(Started 08/20/2020) Take 0.5 tablets by mouth 2 times daily 3 refills by 08/20/2021 Active Problems Problem Noted Date Diagnosed Date Full code status 11/11/2017 Vaginal atrophy 03/09/2017 Paroxysmal atrial tachycardia 07/07/2016 Vertigo 01/25/2016 Fibromyalgia 11/05/2015 Thrombosed hemorrhoids 07/09/2015 Skin lesion 07/09/2015 Hypothyroidism, adult 05/07/2015 Frequent PVCs 02/03/2015 Mixed hyperlipidemia 11/25/2013 Myalgia and myositis 11/25/2013 Chronic fatigue syndrome 11/25/2013 Chronic obstructive airway disease with asthma 0 11/25/2013 Other osteoporosis 11/25/2013 Migraine without aura 11/25/2013 Idiopathic hypersomnia without long sleep time 0 11/25/2013 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 11/26/19 14 Allergic rhinitis 11/25/2013 Overweight 11/25/2013 Acquired absence of both cervix and uterus 11/25 Family history of malignant neoplasm of breast 0 11/25/2013 Other and unspecified nonspecific immunological findings 11/25/2013 Symptomatic menopausal or female climacteric sta lizzie 11/25/2013 Resolved Problems Problem Noted Date Diagnosed Date Resolved Date Nontoxic uninodular goiter 11/25/2013 0 05/07/2015 Immunizations * INFLUENZA VACCINE, TRIV. (AFLURIA, FLUZONE TRIVALENT; 6MO+) (IIV3)(Given 06/12/2014) * FLU VACCINE QUAD IIV4 PF ID(Given 07/28/2016) * INFLUENZA VACCINE(Given 05/23/2013) * INFLUENZA VACCINE, QUADR. (FLUZONE; FLULAVAL; FLUARIX; AFLURIA QUADRIVALENT; 6MO+), 0.5 ML (IIV4)(Given 04/30/2017, 05/07/2015) * PNEUMOCOCCAL PPSV23(Given 11/05/2015) * TDAP (7yrs+)(Given 06/12/2014) Social History Tobacco Use Types Packs/Day Years Used Date Smoking Tobacco: Never Smokeless Tobacco: Never Tobacco Cessation:Counseling Given: Yes Alcohol Use Standard Drinks/Week Comments Yes 1 (1 standard drink = 0.6 oz pur e alcohol) past only - no heavy history Sex and Gender Information Value Date Recorded Sex Assigned at Not on file Gender Identity Not on file Sexual Orientation Not on file Last Filed Vital Signs Vital Sign Reading Time Taken Comments Blood Pressure 121/66 08/20/2020 9:58 AM RN NIGHT Pulse 68 08/20/2020 9:58 AM RN NIGHT Temperature 36 C (96.8 F) 08/22/2019 10:15 AM RN NIGHT Respiratory Rate 20 07/07/2016 11:51 AM RN NIGHT Oxygen Saturation 99% 02/12/2018 10:41 AM CDT Inhaled Oxygen Concentration - - Weight 73.9 kg (163 lb) 08/20/2020 9:58 AM RN NIGHT Height 165.1 cm (5' 5 ) 10/11/2018 10:18 AM RN NIGHT Body Mass Index 27.12 10/11/2018 10:18 AM RN NIGHT Procedures * EKG 12-LEAD(Performed 10/11/2018) Performed for Paroxysmal atrial tachycardia, Frequent PVCs * TSH(Performed 11/11/2017) Performed for Hypothyroidism, adult * COMPREHENSIVE METABOLIC PANEL(Performed 11/11/2017) Performed for Lipid screening * LIPID PROFILE(Performed 11/11/2017) Performed for Lipid screening * MAMMO BILAT DIAGNOSTIC(Performed 09/04/2017) * EVENT MONITOR(Performed 04/21/2017) Performed for Paroxysmal atrial tachycardia, Frequent PVCs * COMPREHENSIVE METABOLIC PANEL(Performed 03/09/2017) Performed for Lipid screening * LIPID PROFILE(Performed 03/09/2017) Performed for Lipid screening * THYROID CASCADE PROFILE(Performed 03/09/2017) Performed for Weight gain * XR KNEE RIGHT 4VW OR MORE(Performed 03/04/2017) * MAMMO BILAT DIAGNOSTIC(Performed 03/04/2017) * MAMMO BILAT SCREENING(Performed 08/27/2016) * HEPATITIS C ANTIBODY(Performed 07/07/2016) Performed for Need for hepatitis C screening test * LIPID PROFILE(Performed 07/07/2016) Performed for Lipid screening * MAGNESIUM BLOOD(Performed 07/07/2016) Performed for Visit for monitoring Multaq therapy, Atrial tachycardia, PVC (premature ventricular contraction) * COMPREHENSIVE METABOLIC PANEL(Performed 07/07/2016) Performed for Visit for monitoring Multaq therapy, Atrial tachycardia, PVC (premature ventricular contraction) * CARDIAC EVENT MONITOR(Performed 05/14/2016) Performed for Frequent PVCs * THYROID CASCADE PROFILE(Performed 04/07/2016) Performed for Palpitations * MAMMO BILAT SCREENING(Performed 08/22/2015) * PATHOLOGY SPECIMEN(Performed 07/09/2015) Performed for Skin lesion * TSH REFLEX FREE T4(Performed 05/07/2015) Performed for Hypothyroidism, adult * ECHOCARDIOGRAM STRESS(Performed 03/21/2015) Performed for Chest discomfort * EKG 12-LEAD(Performed 01/22/2015) * MAMMO BILAT SCREENING(Performed 08/07/2014) * US CAROTID DUPLEX BILAT(Performed 07/20/2014) * XR THORACIC SPINE 3VW(Performed 06/12/2014) Performed for Pain, upper back * XR CERVICAL SPINE 2 OR 3VW(Performed 06/12/2014) Performed for Neck pain * TSH REFLEX FREE T4(Performed 12/10/2013) Performed for Chronic fatigue syndrome * CBC W AUTO DIFFERENTIAL(Performed 12/10/2013) Performed for Chronic fatigue syndrome * LIPID PROFILE(Performed 12/10/2013) Performed for Mixed hyperlipidemia * COMPREHENSIVE METABOLIC PANEL(Performed 12/10/2013) Performed for Mixed hyperlipidemia * IRON + TIBC PANEL(Performed 12/10/2013) Performed for Chronic fatigue syndrome * VITAMIN D 25-HYDROXY(Performed 12/10/2013) Performed for Chronic fatigue syndrome * VITAMIN B12(Performed 12/10/2013) Performed for Chronic fatigue syndrome * OR ELECTROCARDIOGRAM, COMPLETE(Performed 12/05/2013) Performed for Routine general medical examination at a health care facility * EKG 12-LEAD(Performed 12/05/2013) Performed for Routine general medical examination at a health care facility * DEXA BONE DENSITY 2 SITES(Performed 08/03/2013) * MAMMO BILAT SCREENING(Performed 08/03/2013) * PAP THIN PREP(Performed 05/27/2013) * COMPREHENSIVE METABOLIC PANEL(Performed 05/27/2013) * CBC W AUTO DIFFERENTIAL W PLATELETS(Performed 05/27/2013) * TSH(Performed 05/27/2013) * LIPID PROFILE W LDL/HDL RATIO(Performed 09/20/2012) * ENDOSCOPY, COLON, SCREENING(Performed 03/29/2012) * XR ANKLE LEFT 3VW OR MORE(Performed 06/05/2011) Performed for Pain in joint, ankle and foot * XR CHEST 2VW(Performed 05/07/2010) Performed for Shortness of Breath Results * EKG 12-LEAD (10/11/2018) Only the most recent of3 resultswithin the time period is included. Impressions Esther Hodgson L - 10/11/2018 Sinus rhythm Normal ECG Dr. Cheng Mauricio Cheng MD ECG ORDERABLES * (ABNORMAL) COMPREHENSIVE METABOLIC PANEL (11/11/2017 11:43 AM CDT) Only the most recent of5 resultswithin the time period is included. Glucose 101 74 - 106 mg/dL [facility] ACCOUNT BILL BUN 18 7 - 21 mg/dL [facility] ACCOUNT BILL Creatinine 0.89 0.50 - 1.30 mg/dL [facility] ACCOUNT BILL eGFR by MDRD >60 >60 mL/min/1.7 3m2 [facility] ACCOUNT BILL eGFR by MDRD >60 >60 mL/min/1.7 3m2 [facility] ACCOUNT BILL Sodium 143 136 - 145 mmol/L [facility] ACCOUNT BILL Potassium 4.5 3.5 - 5.1 mmol/L [facility] ACCOUNT BILL Chloride 109(H) 98 - 107 mmol/L [facility] ACCOUNT BILL CO2 31 22 - 31 mmol/L [facility] ACCOUNT BILL Calcium 9.3 8.5 - 10.1 mg/dL [facility] ACCOUNT BILL Protein Total 7.2 6.4 - 8.2 gm/dL [facility] ACCOUNT BILL Albumin 4.3 3.4 - 5.0 gm/dL [facility] ACCOUNT BILL Bilirubin Total 0.5 0.2 - 1.0 mg/dL [facility] ACCOUNT BILL Alkaline Phosphatase 116 38 - 126 U/L [facility] ACCOUNT BILL AST 16 5 - 40 U/L [facility] ACCOUNT BILL ALT 21 13 - 61 U/L [facility] ACCOUNT BILL Blood BLOOD SPECIMEN / Unknown 11/11/2017 11:43 AM CDT 11/11/2017 Narrative Resulting Agency Comment [facility] [address] [facility] [phone] Anum Sawyer MD LAB - FRAMEWORK DEVELOPER RY ORDERABLES [facility] ACCOUNT BILL [address] [place] [address] * TSH (11/11/2017 11:43 AM CDT) Only the most recent of2 resultswithin the time period is included. TSH 0.931 0.358 - 3.740 uIU/mL [facility] ACCOUNT BILL Blood BLOOD SPECIMEN / Unknown 11/11/2017 11:43 AM CDT 11/11/2017 Narrative Resulting Agency Comment [facility] [address] [place] [address] [phone] Anum Sawyer MD LAB - FRAMEWORK DEVELOPER RY ORDERABLES Performing Organization Address City/[facility] Co de Phone Number [facility] ACCOUNT BILL [address] [place] [address] * LIPID PROFILE (11/11/2017 11:43 AM CDT) Only the most recent of4 resultswithin the time period is included. Cholesterol 189 <200 mg/dL [facility] ACCOUNT BILL Triglycerides 85 <150 mg/dL [facility] ACCOUNT BILL HDL Cholesterol 67 >40 mg/dL [facility] ACCOUNT BILL VLDL Calculated 17 <=30 mg/dL [facility] ACCOUNT BILL LDL Calculated 105 <130 mg/dL [facility] ACCOUNT BILL Blood BLOOD SPECIMEN / Unknown 11/11/2017 11:43 AM CDT 11/11/2017 Narrative Resulting Agency Comment [facility] [address] [place] [address] [phone] Anum Sawyer MD LAB - FRAMEWORK DEVELOPER RY ORDERABLES [facility] ACCOUNT BILL [address] [place] [address] * MAMMO DIAG DIRECT DIGITAL IMAGE BILA (09/04/2017) Only the most recent of2 resultswithin the time period is included. Anatomical Region Laterality Modality Breast Bilateral Mammography Anum Sawyer MD MAMMO ORDERAB LES * EVENT MONITOR (04/21/2017) Sherrys Mauricio Cheng MD - 04/21/2017 [facility] [place] - Event Monitor Name: Mary Mcmahon : 1960 DOS: 03/23/2017 - 04/21/2017 Clinical Indication: Paroxysmal atrial tachycardia (primary encounter diagnosis) Frequent PVCs Findings: Multiple automatic and patient activated events were reviewed in detail. These were significant for sinus rhythm with occasional PVCs and PACs. There were no significant sustained supraventricular or ventricular arrhythmias. There were no significant bradyarrhythmias. Conclusion: Unremarkable 30 day event monitor with occasional PAC's and PVC's. Mauricio Cheng MD, [facility], [facility] Clinical Cardiac Electrophysiology (phone) (fax) Thank you. Please do not hesitate to call if there are any questions. Mauricio Cheng MD CARDIAC SERVICES OR DERABLES * THYROID CASCADE PROFILE (03/09/2017 11:38 AM CDT) Only the most recent of2 resultswithin the time period is included. TSH 1.490 0.450 - 4.500 uIU/mL [facility] ACCOUNT BILL BLOOD SPECIMEN / Unknown 03/09/2017 11:38 AM CDT 03/09/2017 Narrative Resulting Agency Comment [facility] [place] [address] [facility] [phone] Anum Sawyer MD LAB - FRAMEWORK DEVELOPER RY ORDERABLES [facility] ACCOUNT BILL [address] [place] [address] * XR KNEE 4+ VW RIGHT (03/04/2017) Anatomical Region Laterality Modality Lower Extremity Other Provider Unknown DIAGNOSTIC IMAGING O RDERABLES * MAMMO SCREENING DIGITAL IMAGE BILAT (08/27/2016) Only the most recent of4 resultswithin the time period is included. Anatomical Region Laterality Modality Breast Bilateral Mammography Anum Sawyer MD MAMMO ORDERAB LES * HEPATITIS C ANTIBODY (07/07/2016 12:43 PM RN NIGHT) Hepatitis C Antibody Non Reactive Non Reactive [facility] ACCOUNT BILL Comment: Non Reactive - Antibodies to Hepatitis C virus (HCV) were no t detected, result does not exclude early acute HCV infection. Blood BLOOD SPECIMEN / Unknown 07/07/2016 12:43 PM RN NIGHT 07/07/2016 Narrative Resulting Agency Comment [facility] [address] [place] [address] [phone] Anum Sawyer MD LAB - FRAMEWORK DEVELOPER RY ORDERABLES Performing Organization Address City/[facility] Co de Phone Number [facility] ACCOUNT BILL [address] [place] [address] * MAGNESIUM BLOOD (07/07/2016 10:35 AM RN NIGHT) Magnesium 2.2 1.6 - 2.6 mg/dL [facility] ACCOUNT BILL Blood BLOOD SPECIMEN / Unknown 07/07/2016 10:35 AM RN NIGHT 07/07/2016 Narrative Resulting Agency Comment [facility] [address] [place] [address] [phone] Ember Ag APRN-MOVEMENT ASSEMBLY FINAL INSPECTOR LAB - CHEMISTRY ORDERABLES Performing Organization Address City/[facility] Co de Phone Number [facility] ACCOUNT BILL [address] [place] [address] * CARDIAC EVENT MONITOR (05/14/2016) Mauricio Eldridge MD - 05/14/2016 [facility] [place] - Event Monitor Name: Mary Sydney Mcmahon : 1960 DOS: 03/24/2016 - 04/07/2016 Clinical Indication: Frequent PVCs Findings: The patient's heart rhythm was analyzed for a total of 13 days and 23 hours. The predominant rhythm was sinus with rare PACs and PVCs. There were brief episodes of paroxysmal atrial tachycardia. Many of the patient's symptoms were reported during periods of normal sinus rhythm. Others occurred in association with the patient's paroxysmal atrial tachycardia. There were no significant ventricular arrhythmias, and no significant bradyarrhythmias. Conclusion: Paroxysmal atrial tachycardia Mauricio Cheng MD, [facility], [facility] Clinical Cardiac Electrophysiology (phone) (fax) Thank you. Please do not hesitate to call if there are any questions. Mauricio Cheng MD CARDIAC SERVICES OR DERABLES * PATHOLOGY - [facility]/QUEST (07/09/2015 2:12 PM RN NIGHT) Material [facility] INSURANCE BILL Comment: Material submitted: . RIGHT CHEST BIOPSY Clinician Provided ICD10 [facility] INSURANCE BILL Comment: Clinician provided ICD-10: L98.9 CLHIST [facility] INSURANCE BILL Comment: Clinical history: . ONSET 4 MONTHS AGO HAS INCREASED IN SIZE. 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 TMZ/07/16/2015 Signed [facility] INSURANCE BILL Comment: Electronically signed: . Kamille Guerra MD, Dermatopathologist Grossed [facility] INSURANCE BILL Comment: Gross description: . RECEIVED IS A CONTAINER LABELED LISANDRO, MARY AND DESIGNATED RIGHT CHEST. IN FORMALIN IS A MAC TISSUE MEASURING 4 X 4 X 1 MM. IT IS INKED BLUE, BISECTED, AND BOTH HALVES ARE SUBMITTED IN A SINGLE CASSETTE. COR/JARED Pathologist Provided ICD10 [facility] INSURANCE BILL Comment: Pathologist provided ICD-10: L44.9, D23.5 CPT [facility] INSURANCE BILL Comment: CPT . 304476 Miscellaneous samples (specimen) BIOPSY OF SKIN / Unknown 07/09/2015 2:12 PM RN NIGHT 07/10/2015 9:22 AM RN NIGHT Narrative Resulting Agency Comment [facility] [place] [facility] [address] [facility] [place] [facility] [phone] Sameera Che MD LAB - PATHOLOGY/CYTO LOGY ORDERABLES [facility] INSURANCE BILL * TSH REFLEX FREE T4 (05/07/2015 2:21 PM CDT) Only the most recent of2 resultswithin the time period is included. TSH 1.56 0.358 - 3.740 ulU/mL [facility] INSURANCE BILL Blood specimen (specimen) BLOOD SPECIMEN / Unknown 05/07/2015 2:21 PM CDT 05/07/2015 5:22 PM CDT Narrative Resulting Agency Comment [facility] [address] [facility] [phone] Anum Sawyer MD LAB - FRAMEWORK DEVELOPER RY ORDERABLES Performing Organization Address City/[facility]/ZIP Co de Phone Number [facility] INSURANCE BILL * ECHOCARDIOGRAM STRESS (03/21/2015 9:29 AM CDT) 03/21/2015 9:29 AM CDT Narrative [facility] CARDIOLOGY - 03/21/2015 3:08 PM CDT [facility] [place] [facility] [place] [address] [facility] [address] [place] [address] Exercise Stress Echocardiography Name: MARY MCMAHON MR #: [id number] Study date: 21-Mar-2015 : 1960 Age: 55 years Gender: Female Height: 67 in Weight: 175 lb BSA: 1.91 m Archive: [facility] Allergies: ESCITALOPRAM, CODEINE, HEPARIN, DESVENLAFAXINE Reading Physician: Ekta Fortune MD Referring Physician: Anum Gregorio MD Referring Physician: Mauricio Cheng MD Nurse: Jody Mcwilliams RN Tong Setter: Jennifer Elizabeth RDCS CLINICAL QUESTION: Chest discomfort HISTORY: The patient is a 55 year old female. Coronary artery disease risk factors: dyslipidemia and family history of coronary artery disease. Cardiovascular history: none significant. Medications: a beta rubin, albuterol inhaler. REST ECG: Normal sinus rhythm. Normal baseline ECG. The ECG showed no atrial ectopy, no ventricular ectopy, normal conduction, and normal QRS morphology. PROCEDURE: The procedure was explained to the patient and informed consent was obtained. Treadmill exercise testing was performed, using the Cheng protocol. Stress and rest echocardiographic evaluation with 2D imaging, spectral Doppler, and color Doppler was performed from multiple acoustic windows for evaluation of ventricular function. Systolic blood pressure was 122 mmHg, at the start of the study. Diastolic blood pressure was 60 mmHg, at the start of the study. The heart rate was 87 bpm, at the start of the study. CHENG PROTOCOL: HR bpm SBP mmHg DBP mmHg Symptoms ST change Rhythm/conduct Baseline 87 122 60 none none NSR, no ectopy Stage 1 123 130 70 none none NSR, no ectopy Stage 2 134 136 74 dyspnea none NSR, no ectopy Stage 3 151 152 78 dyspnea, fatigue none NSR, no ectopy Recovery 1 106 136 80 subsiding none rare PAC's Recovery 2 96 120 64 none none NSR, no ectopy No medications or fluids given. STRESS SUMMARY: Duration of exercise was 9 min and 0 sec. The patient exercised to protocol stage 3. Maximal work rate was 10.1 METs. Functional capacity was normal. Maximal heart rate during stress was 155 bpm ( 95 % of maximal predicted heart rate). Target heart rate was achieved. The heart rate response to stress was normal. Maximal systolic blood pressure during stress was 155 mmHg. There was normal resting blood pressure with an appropriate response to stress. The rate-pressure product for the peak heart rate and blood pressure was [address]. There was no chest pain during stress. The stress test was terminated due to achievement of target heart rate, dyspnea, and fatigue. The stress ECG was normal. There were no stress arrhythmias or conduction abnormalities.Arrhythmia during stress: isolated atrial premature beats. STRESS 2D ECHOCARDIOGRAPHIC RESULTS: BASELINE: There were no regional wall motion abnormalities. Left ventricular size was normal. Overall left ventricular systolic function was normal. Estimated left ventricular ejection fraction was in the range of 55 % to 65 %. PEAK STRESS: There were no regional wall motion abnormalities. There was an appropriate reduction in left ventricular size. There was an appropriate augmentation in LV function. OTHER ECHOCARDIOGRAPHIC FINDINGS: There was no evidence for left ventricular dynamic outflow obstruction. SUMMARY: - Stress results: Duration of exercise was 9 min and 0 sec. Maximal work rate was 10.1 METs. Target heart rate was achieved. There was no chest pain during stress. - ECG conclusions: The stress ECG was normal. - Baseline: There were no regional wall motion abnormalities. Estimated left ventricular ejection fraction was in the range of 55 % to 65 %. - Peak stress: There were no regional wall motion abnormalities. IMPRESSIONS: Normal study after maximal exercise. Left ventricular systolic function was normal. SYSTEM MEASUREMENT TABLES CW AV VTI: 16.4 cm AV Vmax: 1.1 m/s AV Vmean: 0.8 m/s AV maxP.9 mmHg AV meanP.7 mmHg Prepared and signed by Ekta Fortune MD Signed 21-Mar-2015 15:08:28 Procedure Note Romario Fortune MD - 03/21/2015 [facility] [place] [facility] [place] [address] [facility] [address] [place] [address] Exercise Stress Echocardiography Name: MARY MCMAHON MR #: [id number] Study date: 21-Mar-2015 : 1960 Age: 55 years Gender: Female Height: 67 in Weight: 175 lb BSA: 1.91 m Archive: [facility] Allergies: ESCITALOPRAM, CODEINE, HEPARIN, DESVENLAFAXINE Reading Physician: Ekta Fortune MD Referring Physician: Anum Gregorio MD Referring Physician: Mauricio Cheng MD Nurse: Jody Mcwilliams RN Tong Setter: Jennifer Elizabeth RDCS CLINICAL QUESTION: Chest discomfort HISTORY: The patient is a 55 year old female. Coronary artery disease risk factors: dyslipidemia and family history of coronary artery disease. Cardiovascular history: none significant. Medications: a beta rubin, albuterol inhaler. REST ECG: Normal sinus rhythm. Normal baseline ECG. The ECG showed no atrial ectopy, no ventricular ectopy, normal conduction, and normal QRS morphology. PROCEDURE: The procedure was explained to the patient and informed consent was obtained. Treadmill exercise testing was performed, using the Cheng protocol. Stress and rest echocardiographic evaluation with 2D imaging, spectral Doppler, and color Doppler was performed from multiple acoustic windows for evaluation of ventricular function. Systolic blood pressure was 122 mmHg, at the start of the study. Diastolic blood pressure was 60 mmHg, at the start of the study. The heart rate was 87 bpm, at the start of the study. CHENG PROTOCOL: HR bpm SBP mmHg DBP mmHg Symptoms ST change Rhythm/conduct Baseline 87 122 60 none none NSR, no ectopy Stage 1 123 130 70 none none NSR, no ectopy Stage 2 134 136 74 dyspnea none NSR, no ectopy Stage 3 151 152 78 dyspnea, fatigue none NSR, no ectopy Recovery 1 106 136 80 subsiding none rare PAC's Recovery 2 96 120 64 none none NSR, no ectopy No medications or fluids given. STRESS SUMMARY: Duration of exercise was 9 min and 0 sec. The patient exercised to protocol stage 3. Maximal work rate was 10.1 METs. Functional capacity was normal. Maximal heart rate during stress was 155 bpm ( 95 % of maximal predicted heart rate). Target heart rate was achieved. The heart rate response to stress was normal. Maximal systolic blood pressure during stress was 155 mmHg. There was normal resting blood pressure with an appropriate response to stress. The rate-pressure product for the peak heart rate and blood pressure was [address]01. There was no chest pain during stress. The stress test was terminated due to achievement of target heart rate, dyspnea, and fatigue. The stress ECG was normal. There were no stress arrhythmias or conduction abnormalities.Arrhythmia during stress: isolated atrial premature beats. STRESS 2D ECHOCARDIOGRAPHIC RESULTS: BASELINE: There were no regional wall motion abnormalities. Left ventricular size was normal. Overall left ventricular systolic function was normal. Estimated left ventricular ejection fraction was in the range of 55 % to 65 %. PEAK STRESS: There were no regional wall motion abnormalities. There was an appropriate reduction in left ventricular size. There was an appropriate augmentation in LV function. OTHER ECHOCARDIOGRAPHIC FINDINGS: There was no evidence for left ventricular dynamic outflow obstruction. SUMMARY: - Stress results: Duration of exercise was 9 min and 0 sec. Maximal work rate was 10.1 METs. Target heart rate was achieved. There was no chest pain during stress. - ECG conclusions: The stress ECG was normal. - Baseline: There were no regional wall motion abnormalities. Estimated left ventricular ejection fraction was in the range of 55 % to 65 %. - Peak stress: There were no regional wall motion abnormalities. IMPRESSIONS: Normal study after maximal exercise. Left ventricular systolic function was normal. SYSTEM MEASUREMENT TABLES CW AV VTI: 16.4 cm AV Vmax: 1.1 m/s AV Vmean: 0.8 m/s AV maxP.9 mmHg AV meanP.7 mmHg Prepared and signed by Ekta Fortune MD Signed 21-Mar-2015 15:08:28 Mauricio Cheng MD ECHO ORDERABLES [facility] [address] [place] [address] * US CAROTID DUPLEX BILAT (07/20/2014) Anatomical Region Laterality Modality Other Meliton Rouse MD VASCULAR LAB ORDERAB LES * XR THORACIC SPINE 3 VW (06/12/2014 2:02 PM CDT) Anatomical Region Laterality Modality Spine Radiographic Aleena ging 06/12/2014 3:58 PM CDT Narrative 06/12/2014 6:05 PM CDT THORACIC SPINE, 3 VIEW HISTORY: Right-sided neck and shoulder and arm pain There is left convex thoracic scoliosis. No fracture or subluxation is seen. DIAGNOSIS: Left convex thoracic scoliosis Otherwise grossly negative Edited by Libby Crockett on 06/12/2014 6:04 PM Procedure Note Logan Ferguson MD - 06/12/2014 THORACIC SPINE, 3 VIEW HISTORY: Right-sided neck and shoulder and arm pain There is left convex thoracic scoliosis. No fracture or subluxation is seen. DIAGNOSIS: Left convex thoracic scoliosis Otherwise grossly negative Edited by Libby Crockett on 06/12/2014 6:04 PM Meliton Rouse MD DIAGNOSTIC IMAGING O RDERABLES * XR CERVICAL SPINE 2 OR 3 VW (06/12/2014 2:02 PM CDT) Anatomical Region Laterality Modality Spine Radiographic Aleena ging 06/12/2014 3:40 PM CDT Narrative 06/12/2014 4:40 PM CDT CERVICAL SPINE, TWO OR THREE VIEW HISTORY: Cervicalgia. There are spacer devices at C5-6 and C6-7. Diffuse degenerative change is present with reversal of normal lordotic curvature. There is mild retrolisthesis at C4-5. No fracture or bone destruction is seen. The prevertebral soft tissues are normal. DIAGNOSIS: There is postsurgical change with degenerative change as described. Edited by Valerie Marquez on 06/12/2014 4:15 PM Procedure Note Logan Ferguson MD - 06/12/2014 CERVICAL SPINE, TWO OR THREE VIEW HISTORY: Cervicalgia. There are spacer devices at C5-6 and C6-7. Diffuse degenerative change is present with reversal of normal lordotic curvature. There is mild retrolisthesis at C4-5. No fracture or bone destruction is seen. The prevertebral soft tissues are normal. DIAGNOSIS: There is postsurgical change with degenerative change as described. Edited by Valerie Marquez on 06/12/2014 4:15 PM Meliton Rouse MD DIAGNOSTIC IMAGING O RDERABLES * CBC W AUTO DIFFERENTIAL (12/10/2013 10:37 AM CDT) WBC 5.9 3.4 - 10.8 x10E3/uL [facility] INSURANCE BILL RBC 4.52 3.77 - 5.28 x10E6/uL [facility] INSURANCE BILL Hemoglobin 14.1 11.1 - 15.9 g/dL [facility] INSURANCE BILL Hematocrit 40.4 34.0 - 46.6 % [facility] INSURANCE BILL MCV 89 79 - 97 fL [facility] INSURANCE BILL MCH 31.2 26.6 - 33.0 pg [facility] INSURANCE BILL MCHC 34.9 31.5 - 35.7 g/dL [facility] INSURANCE BILL RDW 13.9 12.3 - 15.4 % [facility] INSURANCE BILL Platelet Count 214 155 - 379 x10E3/uL [facility] INSURANCE BILL Granulocytes % 45 40 - 74 % [facility] INSURANCE BILL Lymphocytes % 45 14 - 46 % [facility] INSURANCE BILL Monocytes % 9 4 - 12 % [facility] INSURANCE BILL Eosinophils % 1 0 - 5 % [facility] INSURANCE BILL Basophils % 0 0 - 3 % [facility] INSURANCE BILL Immature Cells NOT NEEDED [facility] INSURANCE BILL Comment:Ancillary determined the test is not needed Granulocytes Absolute 2.7 1.4 - 7.0 x10E3/uL [facility] INSURANCE BILL Lymphocytes Absolute 2.7 0.7 - 3.1 x10E3/uL [facility] INSURANCE BILL Monocytes Absolute 0.5 0.1 - 0.9 x10E3/uL [facility] INSURANCE BILL Eosinophils Absolute 0.1 0.0 - 0.4 x10E3/uL [facility] INSURANCE BILL Basophils Absolute 0.0 0.0 - 0.2 x10E3/uL [facility] INSURANCE BILL Immature Granulocytes 0 0 - 2 % [facility] INSURANCE BILL Immature Granulocytes Absolute 0.0 0.0 - 0.1 x10E3/uL [facility] INSURANCE BILL nRBC NOT NEEDED [facility] INSURANCE BILL Comment:Ancillary determined the test is not needed Comment Hematology NOT NEEDED [facility] INSURANCE BILL Comment:Ancillary determined the test is not needed Blood specimen (specimen) BLOOD SPECIMEN / Unknown 12/10/2013 10:37 AM CDT 12/10/2013 1:16 PM CDT Narrative Resulting Agency Comment [facility] [address] [phone] Meliton Rouse MD LAB - HEMATOLOGY ORD ERABLES [facility] INSURANCE BILL * (ABNORMAL) VITAMIN D 25-HYDROXY (12/10/2013 10:19 AM CDT) Vitamin D, 25 Hydroxy 22.6(L) 30.0 - 100.0 ng/mL [facility] INSURANCE BILL Comment: Vitamin D deficiency has been defined by the [place] of [employer] and an Endocrine Society practice guideline as a level of serum 25-OH vitamin D less than 20 ng/mL (1,2). The Endocrine Society went on to further define vitamin D insufficiency as a level between 21 and 29 ng/mL (2). 1. IOM ([place] of [employer]). 2010. Dietary reference intakes for calcium and D. [place]: The National Academies Press. 2. Shauna MF, Pily BLOCK, Petra BLACK, et al. Evaluation, treatment, and prevention of vitamin D deficiency: an Endocrine Society clinical practice guideline. JCEM. 2010; 96(7):7471-30. Blood specimen (specimen) BLOOD SPECIMEN / Unknown 12/10/2013 10:19 AM CDT 12/10/2013 1:16 PM CDT Narrative Resulting Agency Comment [facility] [address] [facility] [phone] Meliton Rouse MD LAB - CHEMISTRY BOBBY GUTIERREZ Performing Organization Address [facility]/ZIP Co de Phone Number [facility] INSURANCE BILL * IRON + TIBC PANEL (12/10/2013 10:19 AM CDT) TIBC 321 250 - 450 ug/dL [facility] INSURANCE BILL UIBC 208 150 - 375 ug/dL [facility] INSURANCE BILL Iron 113 35 - 155 ug/dL [facility] INSURANCE BILL Iron Saturation 35 15 - 55 % [facility] INSURANCE BILL Blood specimen (specimen) BLOOD SPECIMEN / Unknown 12/10/2013 10:19 AM CDT 12/10/2013 1:16 PM CDT Narrative Resulting Agency Comment [facility] [address] [facility] [phone] Meliton Rouse MD LAB - CHEMISTRY BOBBY GUTIERREZ Performing Organization Address [facility] de Phone Number [facility] INSURANCE BILL * VITAMIN B12 (12/10/2013 10:19 AM CDT) Vitamin B12 611 211 - 946 pg/mL [facility] INSURANCE BILL Blood specimen (specimen) BLOOD SPECIMEN / Unknown 12/10/2013 10:19 AM CDT 12/10/2013 1:16 PM CDT Narrative Resulting Agency [facility] [address] [facility] [phone] Meliton Rouse MD LAB - CHEMISTRY BOBBY GUTIERREZ Performing Organization Address [facility] Co de Phone Number [facility] INSURANCE BILL * OR ELECTROCARDIOGRAM, COMPLETE (12/05/2013) Impressions Meliton Rouse MD - 12/05/2013 Normal sinus rhythm at 84 bpm Meliton Rouse MD OR - PROFESSIONAL SE RVICES * DEXA BONE DENSITY 2 SITES (08/03/2013) Anatomical Region Laterality Modality Other Meliton Rouse MD DEXA ORDERABLES * PAP THIN PREP (05/27/2013) Miscellaneous samples (specimen) VAGINA AND CERVIX, CS / Unknown Meliton Rouse MD LAB - PATHOLOGY/CYTO LOGY ORDERABLES * CBC W AUTO DIFFERENTIAL W PLATELETS (05/27/2013) BLOOD SPECIMEN / Unknown Meliton Rouse MD LAB - HEMATOLOGY ORD ERABLES * LIPID PROFILE W LDL/HDL (PO REF LAB) (09/20/2012) Blood specimen (specimen) BLOOD SPECIMEN / Unknown Meliton Rouse MD LAB - CHEMISTRY ORDE RABLES * ENDOSCOPY, COLON, SCREENING (03/29/2012) Meliton Rouse MD GI PROCEDURE ORDERAB LES * XR ANKLE 3+VW LEFT ROUTINE (06/05/2011 1:44 PM CDT) Anatomical Region Laterality Modality Lower Extremity Radiographic Aleena ging 06/05/2011 3:29 PM CDT Impressions 06/05/2011 3:29 PM CDT No acute fracture or dislocation. Narrative 06/05/2011 3:29 PM CDT Exam: Left ankle, 3 views Date: 06/05/2011 History: Ankle pain after fall Findings: No fracture, dislocation, or other osseous abnormalities are present. The bone texture and density are normal. The articular surfaces are smooth. No lytic or blastic lesions are demonstrated. Procedure Note Abram Maldonado MD - 06/05/2011 Exam: Left ankle, 3 views Date: 06/05/2011 History: Ankle pain after fall Findings: No fracture, dislocation, or other osseous abnormalities are present. The bone texture and density are normal. The articular surfaces are smooth. No lytic or blastic lesions are demonstrated. IMPRESSION No acute fracture or dislocation. Meliton Rouse MD DIAGNOSTIC IMAGING O RDERABLES * XR CHEST PA AND LATERAL ROUTINE CHEST (05/07/2010 11:17 AM CDT) Anatomical Region Laterality Modality Chest Radiographic Aleena ging 05/07/2010 11:3 2 AM CDT Narrative 05/07/2010 2:35 PM CDT TWO-VIEW CHEST CLINICAL INFORMATION: Shortness of breath. No prior chest x-ray is available for comparison. The heart size and mediastinal contours are normal. The pulmonary vascularity and adam are normal. The lungs are clear. There is no pleural effusion or pneumothorax. There is mild degenerative change of the thoracic spine. Left convex distal thoracic scoliosis is present. DIAGNOSIS: No acute cardiopulmonary disease. Procedure Note Logan Ferguson MD - 05/07/2010 TWO-VIEW CHEST CLINICAL INFORMATION: Shortness of breath. No prior chest x-ray is available for comparison. The heart size and mediastinal contours are normal. The pulmonary vascularity and adam are normal. The lungs are clear. There is no pleural effusion or pneumothorax. There is mild degenerative change of the thoracic spine. Left convex distal thoracic scoliosis is present. DIAGNOSIS: No acute cardiopulmonary disease. Meliton Rouse MD DIAGNOSTIC IMAGING O STEFFANYERABLES Care Teams Principal Technical Writer Relationship Specialty Start Date End Date Viktor Barron MD [address] [place] [id number] PCP - General Internal Medicine 10/11/18 Mauricio Cheng MD Electrophysiology 04/07/16
--- OUTSIDE RECORDS SUMMARY | 2024-10-28 10:42 | XMS_ITS | Clinical Summary ---
Author Organization [facility] Address [address] [address] Phone Care Team Providers Care Armor Senior Sergeant Name Role Phone Unavailable Primary Care Provider Unavailabl e Social History Tobacco Use Types Packs/Day Years Used Date Smoking Tobacco: Never Assessed Comments Unknown Sex and Gender Information Value Date Recorded Sex Assigned at Not on file Legal Sex Female 11:20 PM CDT Gender Identity Not on file Sexual Orientation Not on file Plan of Treatment Health Maintenance Due Date Last Done Comments DEXA Bone Density 1960 Hepatitis C Virus (HCV) Screening 1960 TdaP Immunization 1958 Pap Smear 1979 Cervical Cancer Screening (CCS) 1988 HPV/Cotest 1988 Cologuard 2008 Immunochemical Fecal Occult Blood 2008 Mammogram 2008 Pneumococcal Immunization (5 0+ years) (1 of 1 - PCV) 2008 Zoster Immunization (1 of 2) 2008 Colonoscopy 03/29/2022 03/29/2012 Colorectal Cancer Screening 03/29/2022 Influenza Immunization (#1) 2024 SARS-COV-2 Immunization ( - season) 2024 Respiratory Syncytial Virus (RSV) Immunization (Adult) (1 - 1-dose 75+ series) 2033 03/29/2012 Hepatitis B Immunization Aged Out No longer eligible based on patient's age to complete this topic Meningococcal Immunization (ACWY) Aged Out No longer eligible based on patient's age to complete this topic Rotavirus Immunization Aged Out No lo nger eligible based on patient's age to complete this topic Procedures Procedure Name Priority Date/Time Associated Diagnosis Comments COLONOSCOPY Routine 03/29/2012 from Last 3 Months or Most Recently Relevant to Health Maintenance Results * HM COLONOSCOPY (03/29/2012) Chris Luevano DO PROCEDURE/MINOR SURGICAL ORDERA BLES Final Result from Last 3 Months or Most Recently Relevant to Health Maintenance
--- OUTSIDE RECORDS SUMMARY | 2024-10-28 10:42 | XMS_ITS | Clinical Summary ---
Author Organization [facility] Address [address] [place] [id number] Care Team Providers Care Chairman Emeritus Name Role Phone Viktor Barron MD Primary Care Provide r Allergies Active Allergy Reactions Criticality Noted Date Comments Codeine Nausea And Vomiting 11/25/2013 Desvenlafaxine Swelling Medium 11/25/2013 On face Escitalopram Urticaria Medium 11/25/2013 Medications aspirin-calciu m carbonate 81 mg-300 mg calcium(777 mg) tablet Take 81 mg by mouth. Active cyanocobalamin (Vitamin B-12) 500 mcg tabletIndicati ons:Prevention of Vitamin B12 Deficiency Take 1 tablet (500 mcg total) by mouth daily Active meclizine (ANTIVERT) 25 mg tablet Take 1 tablet (25 mg total) by mouth 3 times daily 6 Active metoprolol XL (TOPROL-XL) 25 mg extended release tablet Take 0.5 tablets (12.5 mg total) by mouth daily 3 Active PARoxetine (PAXIL) 10 mg tablet Take 1 tablet (10 mg total) by mouth daily 3 Active calcium carbonate (OS-JUDY) 1,250 mg (500 mg elemental) tablet CALCIUM CARBONATE TABLET 0 Active Tobradex ophthalmic ointment APPLY THIN LAYER IN BOTH EYES EVERY DAY 4 Active MULTIVITAMIN ORAL Take 1 tablet by mouth daily Active VITAMIN K2 ORAL Take 1,000 mcg by mouth daily Active UNABLE TO FIND Calcium 1000mg w/ Vit D3 2000 international units 1 capsule daily Active neomycin-polym yxin B-dexAMETHason e (MAXITROL) 3.5 mg/g-10,000 unit/g-0.1 % ointment APPLY A SMALL AMOUNT TO BOTH EYS AT BEDTIME 4 Active metFORMIN XR (GLUCOPHAGE XR) 500 mg 24 hr tablet Take 1 tablet (500 mg total) by mouth daily 30 tablet 6 4 01/21/20 25 Active Additional Information Patient not taking.Reported on 05/13/2024 estradioL (VAGIFEM) 10 mcg tablet 4 Active Active Problems Problem Noted Date Diagnosed Date Insulin resistance 01/21/2024 Assessment & Plan (05/13/2024 10:40 AM CDT): Unable to tolerate Metformin; only took x3 mos. Discussed diet/exercise. Assessment & Plan (01/21/2024 1:58 PM CDT): Continue working on diet and exercise Start metformin XR 500 mg Hyperparathyroidism 03/26/2023 Assessment & Plan (05/13/2024 10:42 AM CDT): Last PTH WNL 09/29/23 (61). Had neg NM parathyroid SPECT 03/21/24. Has stopped calcium supplements but still taking vitamin D3 2000IU daily Will repeat labs at [facility]. Verified that she uses Rep. Aware to check results/results letter in Rep. Will contact by phone if needed. Assessment & Plan (09/29/2023 2:10 PM PHOTOGRAPHIC LABORATORY SUPERVISOR): Primary is still a possibility Pt not keen on having surgery, though. Assessment & Plan (03/26/2023 4:43 PM CDT): Secondary to vitamin-D deficiency although she might have a component of primary hyperparathyroidism, with persistently elevated PTH Will update PTH levels and serum calcium In a patient with osteoporosis, a consideration for surgery can be made SPECT parathyroid scan requested Vitamin D deficiency 03/26/2023 Assessment & Plan (05/13/2024 10:40 AM CDT): Chronic problem. Currently taking D3 2000IU daily. Will update D3 level. Verified that she uses mychart. Aware to check results/results letter in RUNformt. Will contact by phone if needed. Assessment & Plan (09/29/2023 2:07 PM PHOTOGRAPHIC LABORATORY SUPERVISOR): Chronic, well controlled. Update 25 OH vit D levels Will adjust dose of vit D accordingly Assessment & Plan (03/26/2023 4:42 PM CDT): Will update the 25 hydroxy vitamin-D levels Adjust dose of levothyroxine accordingly Thyroid nodule 03/26/2023 Assessment & Plan (05/13/2024 10:39 AM CDT): Chronic problem. Had FNA bx 02/03/23 that was negative. Last thyroid US 02/03/23. Will update US thyroid at [facility]. Verified that she uses mychart. Aware to check results/results letter in Rep. Will contact by phone if needed. Assessment & Plan (09/29/2023 2:07 PM PHOTOGRAPHIC LABORATORY SUPERVISOR): Update TSH, TPO If TSH over 3, will start LT4 25 mcg daily Assessment & Plan (03/26/2023 4:42 PM CDT): I explained to the patient how with a benign Afirma, the odds of malignancy are almost negligible Follow-up with ultrasound in a year. She seems to agree Right medial knee pain 03/11/2017 Vaginal atrophy 03/09/2017 Paroxysmal atrial tachycardia 07/07/2016 Overview (04/02/2017): Overview: Patient received her monitor results which showed atrial tachycardia She started taking metoprolol and was still having symptoms Multaq was recommended She has concerns about taking this medication Has not had any episodes since she saw me last Last Assessment & Plan: Encouraged her to follow up with manager of pmo to make sure all of her concerns were addressed May not need to take chronic medication however her symptoms were such that she was near syncopal, might not be safe to be off medication Vertigo 01/25/2016 Overview (04/02/2017): Overview: On-off years Worse years ago Audiogram showed mild hearing loss; landscape horticulture instructor suggested that vertigo might be vestibular migraines Last Assessment & Plan: Pt does not want to do tilt table testing at this time Pt will try taking imitrex when she has vertigo; may be both diagnostic and therapeutic for vestibular migraine Fibromyalgia 11/05/2015 Overview (04/02/2017): Overview: Added flexeril at last visit Helping sleep better Helping with day pains but very sedating 3x/month she has to take a full day for pain Exercising regularly, walks Doing meditation Found that Leonardo Chi didn't work for her, yoga too painful Last Assessment & Plan: No changes to meds Discussed utility of support groups Didn't discuss trigger point injections today; can bring up next visit Skin lesion 07/09/2015 Overview (04/02/2017): Overview: Notes she has a new lesion on her R chest for the past 2 months and has increased in size. Itchy to start with . Notes her shirt rubs against it. Last Assessment & Plan: Lesion excised as there was recent change in size. Histopathology report awaited. Thrombosed hemorrhoids 07/09/2015 Overview (04/02/2017): Overview: Noticed some itching and burning 3 weeks ago. Now for the past week she noticed a lump at her anus. Tender to the touch. Has tried Preparation H wipes and Tuks wipes with no relief. Denies constipation. Notes she has been lifting her granddaughter and is helping her son move. No bleeding. Notes she had a lumbar diskectomy in and notes she has areas of numbness. Last Assessment & Plan: Patient had a thrombosed hemorrhoid which was incised and clot removed. Following the procedure the patient had marked relief. She was advised on postop care including Sitz baths. She is to follow up or call if bleeding persists. Hypothyroidism, adult 05/07/2015 Overview (04/02/2017): Overview: History of in past Went to button sewer hand or homeopath Was put on armor thyroid Then saw endo (ruffigarin) who stopped it; retested TFTs and levels were normal at that time Recently has been having tightness in neck on R side, when she pushes into neck will feel like theres something in throat; no lumps/bumps Will sometimes have trouble with swallowing foods/liquids but no consistency to pattern No vomiting, +intentional weight loss Last Assessment & Plan: TFTs pending Frequent PVCs 02/03/2015 Overview (04/02/2017): Overview: Dry mouth, was having postural hypotenions with metoprolol Sees Dr Cheng Started on metoprolol Acquired absence of both cervix and uterus 11/25 Overview (04/02/2017): Overview: No done for dysplasia but had dysplasia at time of surgery Needs paps still Allergic rhinitis 11/25/2013 Overview (04/02/2017): Overview: Chronic fatigue syndrome 11/25/2013 Chronic obstructive airway disease with asthma 0 11/25/2013 Overview (04/02/2017): Overview: Manages with environmental avoidance Last albuterol use >1year 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 11/26/19 14 Overview (04/02/2017): Overview: Family history of malignant neoplasm of breast 0 11/25/2013 Overview (04/02/2017): Overview: Sister from braest cancer Has makers in L breast Idiopathic hypersomnia without long sleep time 0 11/25/2013 Migraine without aura 11/25/2013 Overview (04/02/2017): Overview: Usually preceded by vertigo Was having them weekly when she first started with Dr Rouse; when first treated she did a lot to reduce stress; usually will get them every 6 months now However, had two migraines since last visit (in last 3 months) One on day she took antivert (first time she tried it) Helped with dizziness, made her very sedated and had to sleep [place] so much better after the sleep Had another without dizziness Last Assessment & Plan: Refilled imitrex Mixed hyperlipidemia 11/25/2013 Overview (04/02/2017): Overview: ASCVD risk <2%; not on medication Other and unspecified nonspecific immunological findings 11/25/2013 Myalgia and myositis 11/25/2013 Overview (04/02/2017): Overview: Osteoporosis 11/25/2013 Overview (04/02/2017): Overview: Was on boniva in past - had ?necrosis Assessment & Plan (05/13/2024 10:36 AM CDT): Chronic problem. Currently taking Reclast (last infusion 03/18/24). DEXA scheduled 10/28/24 at [facility]. Will update vitamin D level. Verified that she uses mychart. Aware to check results/results letter in RUNformt. Will contact by phone if needed. Assessment & Plan (01/21/2024 1:57 PM CDT): Will set up for Reclast infusion Continue vitamin-D supplementation Assessment & Plan (09/29/2023 2:09 PM PHOTOGRAPHIC LABORATORY SUPERVISOR): Ca and vit D intake discussed Weight beating exercise. Would probably recommend Prolia, since she thinks many of her current symptoms are related to her taking Reclast Overweight(278.02) 11/25/2013 Overview (04/02/2017): Overview: Symptomatic menopausal or female climacteric sta lizzie 11/25/2013 Surgical History Surgery Date Site/Laterality Comments SPINAL FUSION BACK SURGERY HYSTERECTOMY TRIGGER FINGER RELEASE Medical History Medical History Date Comments Hypertension Migraines Heart beat abnormality Neuropathy Valvular disease Hypothyroidism Family History Medical History Relation Name Comments Alcohol abuse Neg Hx Cancer Neg Hx Heart disease Neg Hx Hypertension Neg Hx Social History Tobacco Use Types Packs/Day Years Used Date Smoking Tobacco: Never Smokeless Tobacco: Never Alcohol Use Standard Drinks/Week Comments Yes 0 (1 standard drink = 0.6 oz pur e alcohol) Personal Safety Answer Date Recorded Getting School Help Needed Not on file 08/11 Comments No Sex and Gender Information Value Date Recorded Sex Assigned at Not on file Legal Sex Female 12:18 AM PHOTOGRAPHIC LABORATORY SUPERVISOR Gender Identity Not on file Sexual Orientation Not on file Obstetrics History Last Filed Vital Signs Vital Sign Reading Time Taken Comments Blood Pressure 142/82 05/13/2024 9:46 AM CDT Pulse 82 05/13/2024 9:46 AM CDT Temperature - - Respiratory Rate 18 05/13/2024 9:46 AM CDT Oxygen Saturation - - Inhaled Oxygen Concentration - - Weight 81.6 kg (180 lb) 05/13/2024 9:46 AM CDT Height 160 cm (5' 2.99 ) 05/13/2024 9:46 AM CDT Body Mass Index 31.89 05/13/2024 9:46 AM CDT Plan of Treatment Health Maintenance Due Date Last Done Comments Colon Cancer Screening-Colonoscopy 1960 Depression Screening 1960 Hepatitis C Screening 1960 Osteoporosis Screening-Bone Density Scan 1960 Hepatitis B Screening 1976 Breast Cancer Screening-Mammogram 08/22/2016 08/22/2015, 08/07/2014, 08/03/2013 Well Visit 65+ 2023 Covid-19 Vaccine (2023-2 5 season) 2024 05/15/2023, 05/16/2022, 02/22/2022, Additional history exists Influenza Vaccine (#1) 2024 , 05/16/2022, 06/07/2021, Additional history exists DTaP/Tdap/Td Vaccine (2 - Td or Tdap) 06/12/2024 06/12/2014 Fall Risk Assessment 01/20/2025 01/21/2024 Zoster Vaccine Completed 02/21/2022, 11/23/2021 Pneumococcal vaccine 65+ Completed 05/29/2023, 10/16 Insurance [facility] ACCESS CHOICE MEDICARE [facility] MEDICARE Care Teams Chairman Emeritus Relationship Specialty Start Date End Date Viktor Barron MD [address] [place] [address] PCP - General Emergency Medicine 01/21/24
--- OUTSIDE RECORDS SUMMARY | 2024-10-28 10:42 | XMS_ITS | Clinical Summary ---
Author Organization [facility] Address [address] [place] [id number] Care Team Providers Care Skip Hoist Engineer Name Role Phone Unavailable Primary Care Provider Unavailabl e Social History Tobacco Use Types Packs/Day Years Used Date Smoking Tobacco: Never Assessed Comments Unknown Sex and Gender Information Value Date Recorded Sex Assigned at Not on file Legal Sex Female 1:14 AM COMPUTER BUILDER Gender Identity Not on file Sexual Orientation Not on file Plan of Treatment Health Maintenance Due Date Last Done Comments Colorectal Cancer Screening Colonoscopy (10 Years) 1958 Hepatitis C 1976 DTaP, Tdap and Td Vaccines ( 1 - Tdap) 1977 Mammogram Screening 1998 Zoster Vaccines (1 of 2) 2008 Dexa Scan (General) 2023 Pneumococcal Vaccine: 65+ Ye ars (1 of 1 - PCV) 2023 COVID-19 Vaccine ( - 2023-2 5 season) 2024 Influenza Adult (#1) 2024 RSV Immunization or 60+ Years (1 - 1-dose 75+ series) 2033 Meningococcal B Vaccine Aged Out No l onger eligible based on patient's age to complete this topic Meningococcal Vaccine Aged Out No vickey nicholas eligible based on patient's age to complete this topic RSV Immunizations Under 20 Months Aged Out No longer eligible based on patient's age to complete this topic
--- OUTSIDE RECORDS SUMMARY | 2024-10-28 10:42 | XMS_ITS | Clinical Summary ---
Author Organization [employer] Address [address] [facility] Attn: Epic Prelude ADT AUBRIE THRASHER VAN [address] Care Team Providers Care Finished Garment Inspector Name Role Phone Unavailable Primary Care Provider Unavailabl e Social History Tobacco Use Types Packs/Day Years Used Date Smoking Tobacco: Never Assessed Comments Unknown Sex and Gender Information Value Date Recorded Sex Assigned at Not on file Legal Sex Female 2:47 AM JEWEL BEARING TURNER Gender Identity Not on file Sexual Orientation Not on file Plan of Treatment Health Maintenance Due Date Last Done Comments DTAP/TDAP/TD VACCINES (1 - Tdap) 1977 BREAST CANCER SCREENING 1998 COLORECTAL SCREENING 2003 Colorectal Cancer Screening 2003 FIT-DNA Q 3 years 2003 FIT/FOBT Q 1 year 2003 Flex Sig/CT Colonography Q 5 years 2003 PNEUMOCOCCAL VACCINE 50+ YEARS (1 of 1 - PCV) 03/15/20 08 ZOSTER VACCINE (1 of 2) 2008 OSTEOPOROSIS SCREENING 2023 INFLUENZA VACCINE (#1) 2024 RSV VACCINE (60+ or ) (1 - 1-dose 75+ series) 2033
--- OUTSIDE RECORDS SUMMARY | 2024-10-28 10:42 | XMS_ITS | Referral Summary ---
Author Organization [facility] Address [address] [place] [address] Care Team Providers Care Sld Inclusion Teacher Name Role Phone Mauricio Cheng MD Unavailable [phone] Viktor Barron MD Primary Care Provider [phone] Source Comments [facility] Affiliates and Associated Physician Practices is amultiple site organization consisting of ambulatory clinics and hospital sitesin [place], [place], [place]. This disclosure is being madepursuant to the Care Everywhere program and may not contain all information available regarding this patient. Last updated 18.[facility] Allergies Active Allergy Reactions Criticality Noted Date Comments Codeine Nausea and/or Vomiting 11/25/2013 Heparin Hematologic 11/25/2013 bruising Escitalopram Urticaria 11/25/2013 Desvenlafaxine Swelling 11/25/2013 On face Medications * Be aware that medications may not be up to date on this document. Alwaysverify current medications with the patient. Medication Sig Dispensed Refills Start Date End Date Status ibuprofen (MOTRIN) 200 MG tablet Take 200 mg by mouth every 6 hours as needed for Pain Active albuterol HFA (PROVENTIL HFA) 108 (90 BASE) MCG/ACT inhaler Inhale 2 Puffs by mouth once daily as needed 1 Inhaler 1 05/07/2015 Active meclizine (ANTIVERT) 25 MG tablet Take 1 Tab by mouth 3 times daily as needed for Dizziness 30 Tab 0 11/05/2015 Active aspirin (ASPIRIN) 81 MG tablet Take 81 mg by mouth once daily Active estradiol (ESTRACE) 0.1 MG/GM vaginal cream Insert 2g into vagina nightly for 1-2 weeks and then 1g twice weekly 42.5 g 1 03/09/2017 Active azelastine (ASTEPRO) 205.5 MCG/SPRAY nasal sprayIndications:PRN [place] 2 sprays into each nostril 2 times daily as needed Reasons: PRN 1 Inhaler 3 11/11/2017 Active ALPRAZolam (XANAX) 0.25 MG tablet 09/22/2018 Active sertraline (ZOLOFT) 50 MG tablet Take 50 mg by mouth once daily Active vitamin B-12 (CYANOCOBALAMIN) 500 MCG tablet Take 500 mcg by mouth Active metoprolol tartrate (LOPRESSOR) 25 MG tablet Take 0.5 tablets by mouth 2 times daily 90 tablet 3 08/20/2020 Active Active Problems Problem Noted Date Diagnosed Date Full code status 11/11/2017 Overview (11/11/2017): Marcus spouse is POA Vaginal atrophy 03/09/2017 Paroxysmal atrial tachycardia 07/07/2016 Overview (11/11/2017): Takes metoprolol Follows with EP Has fluttering occ; not sure if it's heart or nerve related Assessment & Plan (11/11/2017 1:30 PM CDT): No changes, f/u per EP Assessment & Plan (07/07/2016 3:07 PM INFORMATION SYSTEMS CONSULTANT): Encouraged her to follow up with radio message router to make sure all of her concerns were addressed May not need to take chronic medication however her symptoms were such that she was near syncopal, might not be safe to be off medication Vertigo 01/25/2016 Overview (04/07/2016): On-off years Worse years ago Audiogram showed mild hearing loss; manager furniture suggested that vertigo might be vestibular migraines Assessment & Plan (01/25/2016 1:14 PM CDT): Pt does not want to do tilt table testing at this time Pt will try taking imitrex when she has vertigo; may be both diagnostic and therapeutic for vestibular migraine Fibromyalgia 11/05/2015 Overview (01/25/2016): Added flexeril at last visit Helping sleep better Helping with day pains but very sedating 3x/month she has to take a full day for pain Exercising regularly, walks Doing meditation Found that Leonardo Chi didn't work for her, yoga too painful Assessment & Plan (01/25/2016 1:13 PM CDT): No changes to meds Discussed utility of support groups Didn't discuss trigger point injections today; can bring up next visit Thrombosed hemorrhoids 07/09/2015 Overview (07/09/2015): Noticed some itching and burning 3 weeks [...] and notes she has areas of numbness. Assessment & Plan (07/10/2015 10:19 AM INFORMATION SYSTEMS CONSULTANT): Patient had a thrombosed hemorrhoid which was incised and clot removed. Following the procedure the patient had marked relief. She was advised on postop care including Sitz baths. She is to follow up or call if bleeding persists. Skin lesion 07/09/2015 Overview (07/09/2015): Notes she has a new lesion on her R chest for the past 2 months and has increased in size. Itchy to start with . Notes her shirt rubs against it. Assessment & Plan (07/10/2015 10:20 AM INFORMATION SYSTEMS CONSULTANT): Lesion excised as there was recent change in size. Histopathology report awaited. Hypothyroidism, adult 05/07/2015 Overview (05/07/2015): History of in past Went to process development manager or homeopath Was put on armor thyroid [...] to pattern No vomiting, +intentional weight loss Assessment & Plan (05/07/2015 2:10 PM CDT): TFTs pending Frequent PVCs 02/03/2015 Overview (07/07/2016): Dry mouth, was having postural hypotenions with metoprolol Sees Dr Cheng Started on metoprolol Mixed hyperlipidemia 11/25/2013 Overview (05/07/2015): ASCVD risk <2%; not on medication Myalgia and myositis 11/25/2013 Overview (05/17/2015): Chronic fatigue syndrome 11/25/2013 Overview (11/11/2017): On disability Chronic obstructive airway disease with asthma 0 11/25/2013 Overview (11/11/2017): Only uses albuterol with weather changes Assessment & Plan (11/11/2017 1:29 PM CDT): No change Other osteoporosis 11/25/2013 Overview (05/07/2015): Was on boniva in past - had ?necrosis Migraine without aura 11/25/2013 Overview (11/11/2017): Was having them weekly when she first started with Dr Rouse; when first treated she did a lot to reduce stress; usually will get them every 6 months now Had two in last 3 weeks Only trigger she can think of is weather Assessment & Plan (11/11/2017 1:31 PM CDT): Will monitor and if they stay at this frequency, may try daily medication Assessment & Plan (01/25/2016 1:13 PM CDT): Refilled imitrex Idiopathic hypersomnia without long sleep time 0 11/25/2013 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 11/26/19 14 Overview (05/17/2015): Allergic rhinitis 11/25/2013 Overview (05/17/2015): Overweight 11/25/2013 Overview (06/24/2015): Acquired absence of both cervix and uterus 11/25 Overview (11/11/2017): No done for dysplasia but had dysplasia at time of surgery Has been getting paps Assessment & Plan (11/11/2017 1:31 PM CDT): Pelvic exam at next visit to determine presence of cervix; if still there, needs paps Family history of malignant neoplasm of breast 0 11/25/2013 Overview (08/21/2016): Sister from braest cancer Has makers in L breast Other and unspecified nonspecific immunological findings 11/25/2013 Symptomatic menopausal or female climacteric sta lizzie 11/25/2013 Resolved Problems Problem Noted Date Diagnosed Date Resolved Date Nontoxic uninodular goiter 11/25/2013 0 05/07/2015 Immunizations Name Administration Dates Next Due INFLUENZA VACCINE, TRIV. (AF LURIA, FLUZONE TRIVALENT; 6MO+) (IIV3) 06/12/2014 FLU VACCINE QUAD IIV4 PF ID 07/28/2016 INFLUENZA VACCINE 05/23/2013 INFLUENZA VACCINE, QUADR. (F LUZONE; FLULAVAL; FLUARIX; AFLURIA QUADRIVALENT; 6MO+), 0.5 ML (IIV4) 04/30/2017,05/07/2015 PNEUMOCOCCAL PPSV23 11/05/2015 TDAP (7yrs+) 06/12/2014 Social History Tobacco Use Types Packs/Day Years [...] Comments Blood Pressure 121/66 08/20/2020 9:58 AM INFORMATION SYSTEMS CONSULTANT Pulse 68 08/20/2020 9:58 AM INFORMATION SYSTEMS CONSULTANT Temperature 36 C (96.8 F) 08/22/2019 10:15 AM INFORMATION SYSTEMS CONSULTANT Respiratory Rate 20 07/07/2016 11:51 AM INFORMATION SYSTEMS CONSULTANT Oxygen Saturation 99% 02/12/2018 10:41 AM CDT Inhaled Oxygen Concentration - - Weight 73.9 kg (163 lb) 08/20/2020 9:58 AM INFORMATION SYSTEMS CONSULTANT Height 165.1 cm (5' 5 ) 10/11/2018 10:18 AM INFORMATION SYSTEMS CONSULTANT Body Mass Index 27.12 10/11/2018 10:18 AM INFORMATION SYSTEMS CONSULTANT Plan of Treatment Not on file Goals Goal Patient Goal Type Associated Problems Recent Progress Patient-Stated? Author Take recommended medication(s) Lifestyle On track( 016 9:11 AM CDT) No Nayeli Baldwin MA Have labs drawn Lifestyle On track( 016 9:11 AM CDT) No Nayeli Baldwin MA Yearly PCP visit Lifestyle No Nayeli Baldwin MA Procedures Procedure Name Priority Date/Time Associated Diagnosis Comments LIPID PROFILE Routine 11/11/2017 11:43 AM CDT Lipid screening MAMMO BILAT DIAGNOSTIC Routine 09/04/2017 HEPATITIS C ANTIBODY Routine 07/07/2016 12:43 PM INFORMATION SYSTEMS CONSULTANT Need for hepatitis C screening test DEXA BONE DENSITY 2 SITES Routine 08/03/2013 ENDOSCOPY, COLON, SCREENING Routine 03/29/2012 from Last 3 Months or Most Recently Relevant to Health Maintenance Results * LIPID PROFILE (11/11/2017 11:43 AM CDT) Cholesterol 189 <200 mg/dL [facility] ACCOUNT BILL Triglycerides 85 <150 mg/dL [facility] ACCOUNT BILL HDL Cholesterol 67 >40 mg/dL [facility] ACCOUNT BILL VLDL Calculated 17 <=30 mg/dL [facility] ACCOUNT BILL LDL Calculated 105 <130 mg/dL [facility] ACCOUNT BILL Blood BLOOD SPECIMEN / Unknown 11/11/2017 11:43 AM CDT 11/11/2017 Narrative Resulting Agency Comment [facility] [address] [facility] [phone] Anum Sawyer MD LAB - CIA AGENT RY ORDERABLES Performing Organization Address City/[facility] Co de Phone Number [facility] ACCOUNT BILL [address] [place] [address] * MAMMO DIAG DIRECT DIGITAL IMAGE BILA (09/04/2017) Anatomical Region Laterality Modality Breast Bilateral Mammography Anum Sawyer MD MAMMO ORDERAB LES * HEPATITIS C ANTIBODY (07/07/2016 12:43 PM INFORMATION SYSTEMS CONSULTANT) Hepatitis C Antibody Non Reactive Non Reactive [facility] ACCOUNT BILL Comment: Non Reactive - Antibodies to Hepatitis C virus (HCV) were no t detected, result does not exclude early acute HCV infection. Blood BLOOD SPECIMEN / Unknown 07/07/2016 12:43 PM INFORMATION SYSTEMS CONSULTANT 07/07/2016 Narrative Resulting Agency Comment [facility] [address] [place] [phone] Anum Sawyer MD LAB - CIA AGENT RY ORDERABLES Performing Organization Address [facility] Co de Phone Number [facility] ACCOUNT BILL [address] [place] [address] * DEXA BONE DENSITY 2 SITES (08/03/2013) Anatomical Region Laterality Modality Other Meliton Rouse MD DEXA ORDERABLES * ENDOSCOPY, COLON, SCREENING (03/29/2012) Meliton Rouse MD GI PROCEDURE ORDERAB LES from Last 3 Months or Most Recently Relevant to Health Maintenance Care Teams Sld Inclusion Teacher Relationship Specialty Start Date End Date Viktor Barron MD [address] [facility] [address] [place] [address] PCP - General Internal Medicine 10/11/18 Mauricio Cheng MD Electrophysiology 04/07/16
--- OUTSIDE RECORDS SUMMARY | 2024-10-28 10:42 | XMS_ITS | Referral Summary ---
Author Organization [facility] [address] [facility] Address [address] [place] [id number] Care Team Providers Care Sandal Parts Assembler Name Role Phone Viktor Barron MD Primary [...] by mouth daily 3 Active calcium carbonate (OS-UJDY) 1,250 mg (500 mg elemental) tablet CALCIUM [...] labs at [facility]. Verified that she uses [facility]. Aware to check results/results letter in [facility]. Will contact by phone if needed. Assessment & Plan (09/29/2023 2:10 PM MARKET RISK ANALYST): Primary is still a possibility Pt not [...] mychart. Aware to check results/results letter in [employer]. Will contact by phone if needed. Assessment & Plan (09/29/2023 2:07 PM MARKET RISK ANALYST): Chronic, well controlled. Update 25 OH vit D levels Will adjust dose of vit D accordingly Assessment & Plan (03/26/2023 4:42 PM CDT): Will update the 25 hydroxy vitamin-D levels Adjust dose of levothyroxine accordingly Thyroid nodule 03/26/2023 Assessment & Plan (05/13/2024 10:39 AM CDT): Chronic problem. Had FNA bx 02/03/23 that was negative. Last thyroid US 02/03/23. Will update US thyroid at [facility]. Verified that she uses mychart. Aware to check results/results letter in [employer]. Will contact by phone if needed. Assessment & Plan (09/29/2023 2:07 PM MARKET RISK ANALYST): Update TSH, TPO If TSH over 3, [...] Plan: Encouraged her to follow up with dietetics teacher to make sure all of her concerns were addressed May not need to take chronic medication however her symptoms were such that she was near syncopal, might not be safe to be off medication Vertigo 01/25/2016 Overview (04/02/2017): Overview: On-off years Worse years ago Audiogram showed mild hearing loss; choral director suggested that vertigo might be vestibular migraines [...] Overview: History of in past Went to book or script editor or homeopath Was put on armor thyroid [...] her very sedated and had to sleep [place] so much better after the sleep Had [...] (last infusion 03/18/24). DEXA scheduled 10/28/24 at [facility]. Will update vitamin D level. Verified that she uses mychart. Aware to check results/results letter in [employer]. Will contact by phone if needed. Assessment & Plan (01/21/2024 1:57 PM CDT): Will set up for Reclast infusion Continue vitamin-D supplementation Assessment & Plan (09/29/2023 2:09 PM MARKET RISK ANALYST): Ca and vit D intake discussed Weight beating exercise. Would probably recommend Prolia, since she thinks many of her current symptoms are related to her taking Reclast Overweight(278.02) 11/25/2013 Overview (04/02/2017): Overview: Symptomatic menopausal or female climacteric sta lizzie 11/25/2013 Social History Tobacco Use Types Packs/Day Years [...] on file Legal Sex Female 12:18 AM MARKET RISK ANALYST Gender Identity Not on file Sexual Orientation [...] 05/13/2024 9:46 AM CDT Plan of Treatment Not on file Insurance [employer] MEDICARE Contractually ACCESS CHOICE Member Subscriber Plan / Payer (Ef fective 2021-Present) Name:Pau Baird [place] Relation to Subscriber:Spouse Name:Marcus Baird Date of :1965 (Home) Address: [address] [place] [id number] Payer ID:[id number] (NAIC) Type:[facility] Address: [address] [place] [phone] MEDICARE Care Teams Sandal Parts Assembler Relationship Specialty Start Date End Date Viktor Barron MD [address] [place] [address] PCP - General Emergency Medicine 01/21/24
--- OUTSIDE RECORDS SUMMARY | 2024-10-28 10:42 | XMS_ITS | Clinical Summary ---
Author Organization [facility] Manufacturers' Inventory Address [address] [place] [address] Care Team Providers Care Technology Infusion Specialist Name Role Phone Mauricio Cheng MD Unavailable [phone] Viktor Barron MD Primary Care Provider [phone] Source Comments [facility],non-[facility] Affiliates and Associated Physician Practices is amultiple site organization consisting of ambulatory clinics and hospital sitesin [place], [place], [place] and [place]. This disclosure is being madepursuant to the Care Everywhere program and may not contain all information available regarding this patient. Last updated 18.[facility] Manufacturers' Inventory Allergies Active Allergy Reactions Criticality Noted Date [...] Active azelastine (ASTEPRO) 205.5 MCG/SPRAY nasal sprayIndications:PRN [place] 2 sprays into each nostril 2 times [...] EP Assessment & Plan (07/07/2016 3:07 PM FIRESTOPPER TECHNICIAN): Encouraged her to follow up with line mover to make sure all of her concerns were addressed May not need to take chronic medication however her symptoms were such that she was near syncopal, might not be safe to be off medication Vertigo 01/25/2016 Overview (04/07/2016): On-off years Worse years ago Audiogram showed mild hearing loss; transistor tester suggested that vertigo might be vestibular migraines [...] numbness. Assessment & Plan (07/10/2015 10:19 AM FIRESTOPPER TECHNICIAN): Patient had a thrombosed hemorrhoid which was [...] it. Assessment & Plan (07/10/2015 10:20 AM FIRESTOPPER TECHNICIAN): Lesion excised as there was recent change in size. Histopathology report awaited. Hypothyroidism, adult 05/07/2015 Overview (05/07/2015): History of in past Went to biodiesel processing technician or homeopath Was put on armor thyroid [...] 04/30/2017,05/07/2015 PNEUMOCOCCAL PPSV23 11/05/2015 TDAP (7yrs+) 06/12/2014 Family History Medical History Relation Name Comments Asthma Brother 2 CAD (Coronary Artery Disease) Father Cancer Father esophageal Heart defect Father valve disease Adrenal disease Maternal Grandfather Avinash son's Hypercholesterolemia Mother Hypertension Mother Osteoporosis Mother Alcohol abuse Paternal Grandfather and [place] PD (smoker) Cancer Sister 2 breast Thyroid Disease Sister 3 Hypertension Sister 4 Asthma Sister 5 Relation Name Status Comments Brother 1 Alive x 1 - possibly diagnosed with HT (possibly stress related), Asthma Brother 2 Father Alive 1938 - CABG and valve replacement, esophageal cancer, prostate cancer, pacermaker Maternal Grandfather Mother Alive 1939 - HTN, HLD , osteoprosis Paternal Grandfather Sister 1 Alive x 4, ons sister passed from metastatic breast cancer, other sisters with thyroid problems and HTN, one sister with asthma Sister 2 Sister 3 Sister 4 Sister 5 Social History Tobacco Use Types Packs/Day Years [...] Comments Blood Pressure 121/66 08/20/2020 9:58 AM FIRESTOPPER TECHNICIAN Pulse 68 08/20/2020 9:58 AM FIRESTOPPER TECHNICIAN Temperature 36 C (96.8 F) 08/22/2019 10:15 AM FIRESTOPPER TECHNICIAN Respiratory Rate 20 07/07/2016 11:51 AM FIRESTOPPER TECHNICIAN Oxygen Saturation 99% 02/12/2018 10:41 AM CDT Inhaled Oxygen Concentration - - Weight 73.9 kg (163 lb) 08/20/2020 9:58 AM FIRESTOPPER TECHNICIAN Height 165.1 cm (5' 5 ) 10/11/2018 10:18 AM FIRESTOPPER TECHNICIAN Body Mass Index 27.12 10/11/2018 10:18 AM FIRESTOPPER TECHNICIAN Plan of Treatment Health Maintenance Due Date Last Done Comments COLOGUARD (AGES 45-75) - COLON CA SCREENING 1960 CT COLONOGRAPHY - COLON CA SCREENING 1960 FIT - COLON CA SCREENING 1960 FLEX SIG - COLON CA SCREENING 1960 ZOSTER VACCINE (1 of 2) 2008 PNEUMOCOCCAL VACCINE 50+ (2 of 2 - PCV) 11/04/2016 11/05/2015 Respiratory Syncytial Virus (RSV) Vaccine Pt: or over 60 yrs (1 - Risk 60-74 years 1-dose series) 2018 MAMMOGRAM 09/04/2018 09/04/2017, 02/14, 08/27/2016, Additional history exists MEDICARE AWV 12 MONTHS 11/11/2018 11/11/2017, 08/21/2016 COLON MONITORING 03/29/2022 03/29/2012 COLONOSCOPY - COLON CA SCREENING 03/29/2022 03/29/2012 Colorectal Cancer Screening 03/29/2022 LIPID TESTING 11/11/2022 11/11/2017, 0711/2016, 07/07/2016, Additional history exists COVID-19 VACCINE ( season) 2024 INFLUENZA VACCINE (#1) 2024 7, 07/28/2016, 05/07/2015, Additional history exists DTAP/TDAP/TD VACCINES (2 - Td or Tdap) 06/12/2024 06/12/2014 DEPRESSION SCREENING 08/17/2024 BONE DENSITY TESTING Completed 08/03/2013 HEPATITIS C SCREENING Completed 07/07/2016 HEPATITIS B VACCINE Aged Out No longe r eligible based on patient's age to complete this topic HIB VACCINE Aged Out No longer eligi ble based on patient's age to complete this topic HPV VACCINE Aged Out No longer eligi ble based on patient's age to complete this topic MENINGOCOCCAL (Group B) VACCINE SHARED DECISION-MAKING Aged Out No longer eligible based on patient's age to complete this topic MENINGOCOCCAL GROUPS A/C/Y/W VACCINE Aged Out No longer eligible based on patient's age to complete this topic Goals Goal Patient Goal Type Associated Problems Recent Progress Patient-Stated? Author Take recommended medication(s) Lifestyle On track( 9:11 AM CDT) No Nayeli Baldwin MA Have labs drawn Lifestyle On track( 9:11 AM CDT) No Nayeli Baldwin MA Yearly PCP visit Lifestyle No Nayeli Baldwin MA Procedures Procedure Name Priority Date/Time Associated Diagnosis Comments LIPID PROFILE Routine 11/11/2017 11:43 AM CDT Lipid screening MAMMO BILAT DIAGNOSTIC Routine 09/04/2017 HEPATITIS C ANTIBODY Routine 07/07/2016 12:43 PM FIRESTOPPER TECHNICIAN Need for hepatitis C screening test DEXA [...] AM CDT 11/11/2017 Narrative Resulting Agency Comment [facility][note 3] [address] [facility] [phone] Anum Sawyer MD LAB - FINANCIAL DEALERS RY ORDERABLES Performing Organization Address City/[facility] Co de Phone Number [facility] ACCOUNT BILL [address] [place] [address] * MAMMO DIAG DIRECT DIGITAL IMAGE BILA (09/04/2017) Anatomical Region Laterality Modality Breast Bilateral Mammography Anum Sawyer MD MAMMO ORDERAB LES * HEPATITIS C ANTIBODY (07/07/2016 12:43 PM FIRESTOPPER TECHNICIAN) Hepatitis C Antibody Non Reactive Non Reactive [facility] ACCOUNT BILL Comment: Non Reactive - Antibodies to Hepatitis C virus (HCV) were no t detected, result does not exclude early acute HCV infection. Blood BLOOD SPECIMEN / Unknown 07/07/2016 12:43 PM FIRESTOPPER TECHNICIAN 07/07/2016 Narrative Resulting Agency Comment [facility] [address] [address] [facility] [phone] Anum Sawyer MD LAB - FINANCIAL DEALERS RY ORDERABLES Performing Organization Address City/[facility]/ZIP Co de Phone Number [facility] ACCOUNT BILL [address] [place] [address] * DEXA BONE DENSITY 2 SITES (08/03/2013) Anatomical Region Laterality Modality Other Meliton Rouse MD DEXA ORDERABLES * ENDOSCOPY, COLON, SCREENING (03/29/2012) Meliton Rouse MD GI PROCEDURE ORDERAB LES from Last 3 Months or Most Recently Relevant to Health Maintenance Care Teams Technology Infusion Specialist Relationship Specialty Start Date End Date Viktor Barron MD [address] [place] [address] [address] [place] [id number] PCP - General Internal Medicine 10/11/18 Mauricio Cheng MD Electrophysiology 04/07/16
--- OUTSIDE RECORDS SUMMARY | 2024-10-28 10:42 | XMS_ITS | Encounter Summary ---
Author Organization [facility] Address [address] [place] [address] Care Team Providers Care Liquefier Name Role Phone Unavailable Primary Care Provider Unavailabl e Encounter Details Date Type Department Care Team (Late st Contact Info) Description 04/11/2005 Outpatient Historical Division of Neurology [address] [address] Judi Banerjee MD [address] [place] [address] Social History Tobacco Use Types Packs/Day Years Used Date Smoking Tobacco: Never Assessed Comments Unknown Sex and Gender Information Value Date Recorded Sex Assigned at Not on file Legal Sex Female 2:47 AM SHREDDED FILLER MACHINE WRAPPER LAYER Gender Identity Not on file Sexual Orientation Not on file documented as of this encounter Plan of Treatment Not on file documented as of this encounter Visit Diagnoses Not on filedocumented in this encounter
== END 2024-10-28 09:58 | disposition home or self-care (01) ==
LOC: ANHIMG 10:02
PROVIDERS: PCP Emergency Medicine; Visit Provider Obstetrics & Gynecology
DX: Z12.31 Encounter for screening mammogram for malignant neoplasm of breast (principal); N95.1 Menopausal and female climacteric states; Z13.820 Encounter for screening for osteoporosis; M85.88 Other specified disorders of bone density and structure, other site; M81.0 Age-related osteoporosis without current pathological fracture; M85.852 Other specified disorders of bone density and structure, left thigh; M85.851 Other specified disorders of bone density and structure, right thigh
CPT/HCPCS: 77063; 77067; 77080

== ENCOUNTER 2024-12-13 11:31 | Outpatient (CLI) | payer BC, MEDICARE, SELFPAY ==
--- NOTE | ~2024-12-13 | XR_ITS ---
Right Shoulder Technique: AP and axillary views were obtained. Clinical History: Pain Findings: No fracture or dislocation is seen. Osseous alignment is anatomic. The glenohumeral and acr omioclavicular joint spaces are preserved. Soft tissues are unremarkable. Impression: Unremarkable right shoulder radiographs. Reviewed, dictated and finalized at [facility]. Impression: Unremarkable right shoulder radiographs.
--- OUTSIDE RECORDS SUMMARY | 2024-12-13 12:58 | XMS_ITS | Clinical Summary ---
Author Organization [facility]vr Address [address] [place] [address] Care Team Providers Care Waste Elimination Name Role Phone Mauricio Cheng MD Unavailable [phone] Viktor Barron MD Primary Care Provider [phone] Source Comments [facility],non-[facility] Affiliates and Associated Physician Practices is amultiple site organization consisting of ambulatory clinics and hospital sitesin [place] and [place]. This disclosure is being madepursuant to the Care Everywhere program and may not contain all information available regarding this patient. Last updated 18.[facility] Allergies Active Allergy Reactions Criticality Noted Date Comments Codeine Nausea and/or Vomiting 11/25/2013 Heparin Hematologic 11/25/2013 bruising Escitalopram Urticaria 11/25/2013 Desvenlafaxine Swelling 11/25/2013 On face Medications * Be aware that medications may not be up to date on this document. Alwaysverify current medications with the patient. ibuprofen (MOTRIN) 200 MG tablet Take 200 mg by mouth every 6 hours as needed for Pain Active albuterol HFA (PROVENTIL HFA) 108 (90 BASE) MCG/ACT inhaler Inhale 2 Puffs by mouth once daily as needed 1 Inhaler 1 5 Active meclizine (ANTIVERT) 25 MG tablet Take 1 Tab by mouth 3 times daily as needed for Dizziness 30 Tab 0 6 Active aspirin (ASPIRIN) 81 MG tablet Take 81 mg by mouth once daily Active estradiol (ESTRACE) 0.1 MG/GM vaginal cream Insert 2g into vagina nightly for 1-2 weeks and then 1g twice weekly 42.5 g 1 7 Active azelastine (ASTEPRO) 205.5 MCG/SPRAY nasal sprayIndication s:PRN [place] 2 sprays into each nostril 2 times daily as needed Reasons: PRN 1 Inhaler 3 8 Active ALPRAZolam (XANAX) 0.25 MG tablet 9 Active sertraline (ZOLOFT) 50 MG tablet Take 50 mg by mouth once daily Active vitamin B-12 (CYANOCOBALAMIN ) 500 MCG tablet Take 500 mcg by mouth Active metoprolol tartrate (LOPRESSOR) 25 MG tablet Take 0.5 tablets by mouth 2 times daily 90 tablet 3 1 Active Active Problems Problem Noted Date Diagnosed Date Full code status 11/11/2017 Overview (11/11/2017): Bhargav spouse is POA Vaginal atrophy 03/09/2017 Paroxysmal atrial tachycardia 07/07/2016 Overview (11/11/2017): Takes metoprolol Follows with EP Has fluttering occ; not sure if it's heart or nerve related Assessment & Plan (11/11/2017 1:30 PM CDT): No changes, f/u per EP Assessment & Plan (07/07/2016 3:07 PM BALER OPERATOR): Encouraged her to follow up with real estate office manager to make sure all of her concerns were addressed May not need to take chronic medication however her symptoms were such that she was near syncopal, might not be safe to be off medication Vertigo 01/25/2016 Overview (04/07/2016): On-off years Worse years ago Audiogram showed mild hearing loss; parachute folder suggested that vertigo might be vestibular migraines [...] numbness. Assessment & Plan (07/10/2015 10:19 AM BALER OPERATOR): Patient had a thrombosed hemorrhoid which was [...] it. Assessment & Plan (07/10/2015 10:20 AM BALER OPERATOR): Lesion excised as there was recent change in size. Histopathology report awaited. Hypothyroidism, adult 05/07/2015 Overview (05/07/2015): History of in past Went to field property loss specialist or homeopath Was put on armor thyroid [...] Nontoxic uninodular goiter 11/25/2013 0 05/07/2015 Immunizations Immunization Administration Dates Next Due INFLUENZA VACCINE, TRIV. [...] alcohol) past only - no heavy history Comments No Sex and Gender Information Value Date Recorded Sex Assigned at Not on file Legal Sex Female 6:15 AM BALER OPERATOR Gender Identity Not on file Sexual Orientation Not on file Occupation Industry Job Start Date Job End Date disability Not on file Not on file Not on file Last Filed Vital Signs Vital Sign Reading Time Taken Comments Blood Pressure 121/66 08/20/2020 9:58 AM BALER OPERATOR Pulse 68 08/20/2020 9:58 AM BALER OPERATOR Temperature 36 C (96.8 F) 08/22/2019 10:15 AM BALER OPERATOR Respiratory Rate 20 07/07/2016 11:51 AM BALER OPERATOR Oxygen Saturation 99% 02/12/2018 10:41 AM CDT Inhaled Oxygen Concentration - - Weight 73.9 kg (163 lb) 08/20/2020 9:58 AM BALER OPERATOR Height 165.1 cm (5' 5 ) 10/11/2018 10:18 AM BALER OPERATOR Body Mass Index 27.12 10/11/2018 10:18 AM BALER OPERATOR Plan of Treatment Health Maintenance Due Date Last Done Comments COLOGUARD (AGES 45-75) - COLON CA SCREENING 1960 CT COLONOGRAPHY - COLON CA SCREENING 1960 FIT - COLON CA SCREENING 1960 FLEX SIG - COLON CA SCREENING 1960 ZOSTER VACCINE (1 of 2) 2008 PNEUMOCOCCAL VACCINE 50+ (2 of 2 - PCV) 11/04/2016 11/05/2015 MAMMOGRAM 09/04/2018 09/04/2017, 02/14, 08/27/2016, Additional history exists COLON MONITORING 03/29/2022 03/29/2012 COLONOSCOPY - COLON CA SCREENING 03/29/2022 03/29/2012 Colorectal Cancer Screening 03/29/2022 LIPID TESTING 11/11/2022 11/11/2017, 02/15, 07/07/2016, Additional history exists COVID-19 VACCINE ( - season) 2024 DTAP/TDAP/TD VACCINES (2 - Td or Tdap) 06/12/2024 06/12/2014 DEPRESSION SCREENING 08/17/2024 INFLUENZA VACCINE (Season Ended) 2025 04/30/2017, 07/28/2016, 05/07/2015, Additional history exists Respiratory Syncytial Virus (RSV) Vaccine Pt: or over 60 yrs (1 - 1-dose 75+ series) 2033 BONE DENSITY TESTING Completed 08/03/2013 HEPATITIS C [...] HEPATITIS C ANTIBODY Routine 07/07/2016 12:43 PM BALER OPERATOR Need for hepatitis C screening test DEXA [...] AM CDT 11/11/2017 Narrative Resulting Agency Comment [facility] [address] [facility] [address] [facility] [phone] [place] Anum Sawyer MD LAB - CHEMISTRY ORDER DANIELLE Final Result Performing Organization Address City/[facility]/ZIP Co de Phone Number [facility] ACCOUNT BILL [address] [place] [address] * MAMMO DIAG DIRECT DIGITAL IMAGE BILA (09/04/2017) Anatomical Region Laterality Modality Breast Bilateral Mammography Anum Sawyer MD MAMMO ORDERABLES Destiny l Result * HEPATITIS C ANTIBODY (07/07/2016 12:43 PM BALER OPERATOR) Hepatitis C Antibody Non Reactive Non Reactive [facility] ACCOUNT BILL Comment: Non Reactive - Antibodies to Hepatitis C virus (HCV) were no t detected, result does not exclude early acute HCV infection. Blood BLOOD SPECIMEN / Unknown 07/07/2016 12:43 PM BALER OPERATOR 07/07/2016 Narrative Resulting Agency Comment [facility] [address] [place] [phone] [place] Anum Sawyer MD LAB - CHEMISTRY ORDER DANIELLE Final Result [facility] ACCOUNT BILL [address] [place] [address] * DEXA BONE DENSITY 2 SITES (08/03/2013) Anatomical Region Laterality Modality Other Meliton Rouse MD DEXA ORDERABLES Final Result * ENDOSCOPY, COLON, SCREENING (03/29/2012) Meliton Rouse MD GI PROCEDURE ORDERABLES Final Result from Last 3 Months or Most Recently Relevant to Health Maintenance Insurance MEDICARE [facility] Care Teams Waste Elimination Relationship Specialty Start Date End Date Viktor Barron MD [address] [place] [address] [address] [place] [address] PCP - General Internal Medicine 10/11/18 Mauricio Cheng MD Electrophysiology 04/07/16
--- OUTSIDE RECORDS SUMMARY | 2024-12-13 12:58 | XMS_ITS | Clinical Summary ---
Author Organization [facility] Address [address] Attn: Epic Prelude ADT [place] [address] Care Team Providers Care Cleaner Operator Name Role Phone Unavailable Primary Care Provider Unavailabl e Social History Tobacco Use Types Packs/Day Years Used Date Smoking Tobacco: Never Assessed Comments Unknown Sex and Gender Information Value Date Recorded Sex Assigned at Not on file Legal Sex Female 2:47 AM FOREST PATHOLOGY PROFESSOR Gender Identity Not on file Sexual Orientation [...]
--- OUTSIDE RECORDS SUMMARY | 2024-12-13 12:58 | XMS_ITS | CONTINUITY OF CARE DOCUMENT ---
Author Name hamlet mcnulty Address Unknown Organization [facility] Address [address] [place] [address] Phone [phone] Care Team Providers Care Lathe Turner Name Role Phone Patrice COWART, Caryn Unavailable SULTAN COWART, ANKIT Unavailable [phone] KIANA COWART, TRUNG Unavailable [phone] PROBLEMS Condition Status Date Provider Notes CHEST PAIN active Caryn Ibrahim MD PALPITATIONS active Caryn Ibrahim MD CHEST PAIN-02/21 STRESS NEG, ECHO EF 60 active ? Caryn Ibrahim MD DIZZINESS-11/22 CAROTID NEG active ? Caryn Ibrahim MD ENCOUNTERS Date Type Provider Location Encounter Diag nosis - In-person encounter Office Visit Caryn Ibrahim MD [facility] PALPITATIONSCHEST PAIN-8 STRESS NEG, ECHO EF 60DIZZINESS-11/22 CAROTID NEG - In-person encounter Office Visit Caryn Ibrahim MD [facility] CHEST PAINPALPITATIONS VITAL SIGNS Date Observation Value Provider blood pressure, diastolic 71 mm[Hg] John Sanchez blood pressure, systolic 114 mm[Hg] Ortiz pulse rate 64 /min Janet Sanchez oxygen saturation, oximetry 98 % Janet Sanchez respiratory rate E&M 18 /min Janet mckinney weight E&M 152 [lb_av] Janet Sanchez blood pressure, diastolic 60 mm[Hg] Jeimy Ballesteros blood pressure, systolic 100 mm[Hg] Sherita Ballesteros pulse rate 94 /min Eliseo ortiz oxygen saturation, oximetry 98 % Eliseo Ballesteros respiratory rate E&M 16 /min Luther Ballesteros weight E&M 152 [lb_av] Eliseo ortiz RESULTS Date Observation Value Provider Reference Range Interpretation Location 3 LDL/HDL ratio, serum 0.9 [facility] triglyceride, serum, fasting 55 mg/dL [facility] HDL cholesterol, serum 94 mg/dL [facility] LDL cholesterol, serum 82 mg/dL [facility] 3 cholesterol, serum 187 mg/dL Nancie Easley HISTORY OF MEDICATION USE Medication Status Instructions Dates Provider Indications Com ments ZINC AMINO ACID CHELATE POWD active 10/18 teaspoon daily Janet Sanchez VALTREX 500 MG ORAL TABLET active 1 tablet daily Janet Daniel TESTOSTERONE PATCH active Eliseo Ballesteros VIVELLE PTTW active Eliseo Ballesteros VITAMIN B12 INJECTIONS active Eliseo Ballesteros FERRIMONE IV completed - 0 Janet Daniel CALCIUM CARBONATE TABLET active one tab. daily Eliseo Ballesteros VITAMIN B COMPLEX active once daily Luther Ballesteros VITAMIN D-400 TABLET active once daily Eliseo Ballesteros POTASSIUM TABS active once daily Eliseo Ballesteros MULTIVITAMINS ORAL CAPSULE active ONE TAB. DAILY Eliseo Ballesteros COQ10 CAPSULE active once daily Eliseo Ballesteros MAGNESIUM CAPSULE active once daily Luther Ballesteros DIFLUCAN 200 MG ORAL TABLET active once daily Eliseo Ballesteros THYROID TABS (THYROID) active once daily Eliseo Ballesteros SOCIAL HISTORY Date Observation Value Provider social history E&M Marital Statu s: O ccupation: Artist E thnicity: L [place] with family/friends Caryn Ibrahim MD Occupation #1 Artist Caryn Ibrahim MD social history reviewed E&M reviewed Caryn Ibrahim MD physical exercise, f requency, days per week yes [employer] caffeine use, averag e drinks per day yes [employer] alcohol use, average drinks per day none [employer] [facility] M[facility] STATUS Date Observation Value Provider assessment of judgme nt and insight E&M Alert and oriented to time, place and person. Mood and affect are normal. Beka Garay RN assessment of judgme nt and insight E&M Alert and oriented to time, place and person. Mood and affect are normal. Caryn Ibrahim MD INSURANCE PROVIDERS Payer name Policy type / Coverage type [employer] ID MEDICARE SECONDARY [employer] Medicare [id number] [facility] [id number] TREATMENT PLAN Date Name Performer routine : B P today: 114/71 Prior BP: 100/60 (02/03/2008) N uclear Stress Findings: 1. Normal Cheng protocol exercise tolerance test. 2 . Normal left ventricular size and function with a calculated ejection fraction of 58%. 3 . Myocardial scintigraphy is normal without evidence for previous myocardial infarction or reversible ischemia. (03/13/2008) C arotid Doppler/Duplex: normal: (12/09/2007) C HOL: 187 (09/29/2007) LDL: 82 (09/29/2007) HDL: 94 (09/29/2007) T (09/29/2007) E chocardiogram: The left ventricular chamber size is normal. Normal left ventricular wall thickness.Normal left v entricular function. LV EF is estimated at 60%. T he right ventricle is normal in size. The right ventricle has normal systolic function. Normal left atrium. Normal right a trium. The Mitral Valve is structurally normal and appears to open and close adequately.The aortic valve appears s tructurally normal. There is diastolic flow in the area of the right coronary, probable coronary flow.The tricuspid v alve is structurally normal. The right ventricular systolic pressure (RSVP) is estimated to be 23 mmHg and is within n ormal limits. Minimal mitral regurgitation. N o evidence of aortic valve regurgitation. M inimal tricuspid regurgitation. M inimal pulmonic regurgitation. (03/13/2008) Caryn Ibrahim MD routine Caryn Grimes routine : B P today: 114/71 Prior BP: 100/60 (02/03/2008) N uclear Stress Findings: 1. Normal Cheng protocol exercise tolerance test. 2 . Normal left ventricular size and function with a calculated ejection fraction of 58%. 3 . Myocardial scintigraphy is normal without evidence for previous myocardial infarction or reversible ischemia. (03/13/2008) C arotid Doppler/Duplex: normal: (12/09/2007) C HOL: 187 (09/29/2007) LDL: 82 (09/29/2007) HDL: 94 (09/29/2007) T (09/29/2007) E chocardiogram: The left ventricular chamber size is normal. Normal left ventricular wall thickness.Normal left v entricular function. LV EF is estimated at 60%. T he right ventricle is normal in size. The right ventricle has normal systolic function. Normal left atrium. Normal right a trium. The Mitral Valve is structurally normal and appears to open and close adequately.The aortic valve appears s tructurally normal. There is diastolic flow in the area of the right coronary, probable coronary flow.The tricuspid v alve is structurally normal. The right ventricular systolic pressure (RSVP) is estimated to be 23 mmHg and is within n ormal limits. Minimal mitral regurgitation. N o evidence of aortic valve regurgitation. M inimal tricuspid regurgitation. M inimal pulmonic regurgitation. (03/13/2008) Caryn Ibrahim MD routine :Infrequent and not troublesome. If symptomatic will need an event monitor. Caryn Ibrahim MD New pt ready to sign : O rders: E KG (CPT-02078) S tress Test - Nuclear (13846) C omplete Echo (CPT-07886) Caryn Ibrahim MD New pt ready to sign :Will arrange holter. O rders: H olter Monitor 24 Hr (CPT-02042) C omplete Echo (CPT-74783) Caryn Ibrahim MD Date Name Complete Echo Stress Test - Nuclea r Holter Monitor 24 Hr HISTORY OF PROCEDURES Procedure Date Procedure Name Provider Procedure Notes S tatus EKG Caryn Ibrahim MD complet ed
--- OUTSIDE RECORDS SUMMARY | 2024-12-13 12:58 | XMS_ITS | Referral Summary ---
Author Organization [address] Address [address] [place] [id number] Care Team Providers Care Laborer Construction Or Leak Gang Name Role Phone Viktor Barron MD Primary [...] labs at [facility]. Verified that she uses [email or web address]. Aware to check results/results letter in [email or web address]. Will contact by phone if needed. Assessment & Plan (09/29/2023 2:10 PM MIDDLE SCHOOL COUNSELOR): Primary is still a possibility Pt not [...] mychart. Aware to check results/results letter in [facility]. Will contact by phone if needed. Assessment & Plan (09/29/2023 2:07 PM MIDDLE SCHOOL COUNSELOR): Chronic, well controlled. Update 25 OH vit D levels Will adjust dose of vit D accordingly Assessment & Plan (03/26/2023 4:42 PM CDT): Will update the 25 hydroxy vitamin-D levels Adjust dose of levothyroxine accordingly Thyroid nodule 03/26/2023 Assessment & Plan (05/13/2024 10:39 AM CDT): Chronic problem. Had FNA bx 02/03/23 that was negative. Last thyroid US 02/03/23. Will update US thyroid at [facility]. Verified that she uses mychart. Aware to check results/results letter in [email or web address]. Will contact by phone if needed. Assessment & Plan (09/29/2023 2:07 PM MIDDLE SCHOOL COUNSELOR): Update TSH, TPO If TSH over 3, [...] Plan: Encouraged her to follow up with capacity analyst to make sure all of her concerns were addressed May not need to take chronic medication however her symptoms were such that she was near syncopal, might not be safe to be off medication Vertigo 01/25/2016 Overview (04/02/2017): Overview: On-off years Worse years ago Audiogram showed mild hearing loss; diaper machine tender suggested that vertigo might be vestibular migraines [...] Overview: History of in past Went to geographical historian or homeopath Was put on armor thyroid [...] her very sedated and had to sleep [place] so much better after the sleep Had [...] (last infusion 03/18/24). DEXA scheduled 10/28/24 at [facility]. Will update vitamin D level. Verified that she uses mychart. Aware to check results/results letter in [facility]. Will contact by phone if needed. Assessment & Plan (01/21/2024 1:57 PM CDT): Will set up for Reclast infusion Continue vitamin-D supplementation Assessment & Plan (09/29/2023 2:09 PM MIDDLE SCHOOL COUNSELOR): Ca and vit D intake discussed Weight [...] on file Legal Sex Female 12:18 AM MIDDLE SCHOOL COUNSELOR Gender Identity Not on file Sexual Orientation [...] Plan of Treatment Not on file Insurance [employer] MEDICARE [employer] ACCESS CHOICE Member Subscriber Plan / Payer (Ef fective 2021-Present) Name:Pau Baird [place] Relation to Subscriber:Spouse Name:Marcus Baird Date of :1965 (Home) Address: [address] [place] [id number] Payer ID:[id number] (NAIC) Type:[facility] Address: [address] [place] [id number] MEDICARE Care Teams Laborer Construction Or Leak Gang Relationship Specialty Start Date End Date Viktor Barron MD [address] [place] [address] PCP - General Emergency Medicine 01/21/24
--- OUTSIDE RECORDS SUMMARY | 2024-12-13 12:58 | XMS_ITS | Encounter Summary ---
Author Organization [employer] Address [address] [place] [address] Care Team Providers Care Medical Biller Coder Name Role Phone Unavailable Primary Care Provider Unavailabl e Encounter Details Date Type Department Care Team (Late st Contact Info) Description 04/11/2005 Outpatient Historical Division of Neurology [address] [address] Judi Banerjee MD [address] [place] [address] Social History Tobacco Use Types Packs/Day Years Used Date Smoking Tobacco: Never Assessed Comments Unknown Sex and Gender Information Value Date Recorded Sex Assigned at Not on file Legal Sex Female 2:47 AM ACCOUNT STRATEGIST Gender Identity Not on file Sexual Orientation Not on file documented as of this encounter Plan of Treatment Not on file documented as of this encounter Visit Diagnoses Not on filedocumented in this encounter
--- OUTSIDE RECORDS SUMMARY | 2024-12-13 12:58 | XMS_ITS | Clinical Summary ---
Author Organization [facility] Address [address] [place] [address] Care Team Providers Care Employment Case Manager Name Role Phone Unavailable Primary Care Provider Unavailabl e Social History Tobacco Use Types Packs/Day Years Used Date Smoking Tobacco: Never Assessed Comments Unknown Sex and Gender Information Value Date Recorded Sex Assigned at Not on file Legal Sex Female 1:14 AM ELECTRICAL CONTRACTOR Gender Identity Not on file Sexual Orientation Not on file Plan of Treatment Health Maintenance Due Date Last Done Comments Colorectal Cancer Screening Colonoscopy (10 Years) 1958 Hepatitis C 1976 DTaP, Tdap and Td Vaccines ( 1 - Tdap) 1977 Mammogram Screening 1998 Pneumococcal Vaccine: 50+ Ye ars (1 of 1 - PCV) 2008 Zoster Vaccines (1 of 2) 2008 Dexa Scan (General) 2023 COVID-19 Vaccine ( - 2023-2 5 season) 2024 RSV Immunization or 60+ Years (1 [...]
--- OUTSIDE RECORDS SUMMARY | 2024-12-13 12:58 | XMS_ITS | Clinical Summary ---
Author Organization [facility] Address [address] [address] Phone Care Team Providers Care Track Repairer Name Role Phone Unavailable Primary Care Provider [...]
--- OUTSIDE RECORDS SUMMARY | 2024-12-13 12:58 | XMS_ITS | Clinical Summary ---
Author Organization [facility] Address [address] [place] [id number] Care Team Providers Care Psychiatric Aide Name Role Phone Viktor Barron MD Primary [...] labs at [facility]. Verified that she uses [facility]. Aware to check results/results letter in [employer]. Will contact by phone if needed. Assessment & Plan (09/29/2023 2:10 PM UNDERWRITING SUPPORT MANAGER): Primary is still a possibility Pt not [...] mychart. Aware to check results/results letter in [employer]. Will contact by phone if needed. Assessment & Plan (09/29/2023 2:07 PM UNDERWRITING SUPPORT MANAGER): Chronic, well controlled. Update 25 OH vit D levels Will adjust dose of vit D accordingly Assessment & Plan (03/26/2023 4:42 PM CDT): Will update the 25 hydroxy vitamin-D levels Adjust dose of levothyroxine accordingly Thyroid nodule 03/26/2023 Assessment & Plan (05/13/2024 10:39 AM CDT): Chronic problem. Had FNA bx 02/03/23 that was negative. Last thyroid US 02/03/23. Will update US thyroid at [facility]. Verified that she uses mychart. Aware to check results/results letter in [employer]. Will contact by phone if needed. Assessment & Plan (09/29/2023 2:07 PM UNDERWRITING SUPPORT MANAGER): Update TSH, TPO If TSH over 3, [...] Plan: Encouraged her to follow up with ruby on rails software developer to make sure all of her concerns were addressed May not need to take chronic medication however her symptoms were such that she was near syncopal, might not be safe to be off medication Vertigo 01/25/2016 Overview (04/02/2017): Overview: On-off years Worse years ago Audiogram showed mild hearing loss; cooking instructor suggested that vertigo might be vestibular [...] Overview: History of in past Went to etl bi developer or homeopath Was put on armor thyroid [...] her very sedated and had to sleep [place] so much better after the sleep Had [...] (last infusion 03/18/24). DEXA scheduled 10/28/24 at [facility]. Will update vitamin D level. Verified that she uses mychart. Aware to check results/results letter in [employer]. Will contact by phone if needed. Assessment & Plan (01/21/2024 1:57 PM CDT): Will set up for Reclast infusion Continue vitamin-D supplementation Assessment & Plan (09/29/2023 2:09 PM UNDERWRITING SUPPORT MANAGER): Ca and vit D intake discussed Weight [...] on file Legal Sex Female 12:18 AM UNDERWRITING SUPPORT MANAGER Gender Identity Not on file Sexual Orientation [...] 2024 05/15/2023, 05/16/2022, 02/22/2022, Additional history exists DTaP/Tdap/Td Vaccine (2 - Td or Tdap) 06/12/2024 06/12/2014 Fall Risk Assessment 01/20/2025 01/21/2024 Influenza Vaccine (Season Ended) 2025 05/15/2023, 05/16/2022, 06/07/2021, Additional history exists Zoster Vaccine Completed 02/21/2022, 11/23/2021 Pneumococcal vaccine 65+ Completed 05/29/2023, 10/16 Insurance [facility] ACCESS CHOICE MEDICARE [facility] [employer] [facility] MEDIC[facility] Care Teams Psychiatric Aide Relationship Specialty Start Date End Date Viktor Barron MD [address] [place] [address] PCP - General Emergency Medicine 01/21/24
== END 2024-12-13 11:32 | disposition home or self-care (01) ==
PROVIDERS: PCP Emergency Medicine; Visit Provider Emergency Medicine
DX: M25.511 Pain in right shoulder (principal)
CPT/HCPCS: 73030

== ENCOUNTER 2025-07-07 11:28 | Emergency (ER) | payer BC, MEDICARE, SELFPAY ==
[2025-07-07 11:37] VITALS: BP 131/67; PULSE 86; RESP 18; TEMP 36.9; O2SAT 97
--- NOTE | 2025-07-07 11:53 | ED.URI ---
HPI - URI/Sore Throat General Chief Complaint: Upper Respiratory Infection Stated Complaint: CONGESTION/EARS/SINUS/COUGH/LIGHT HEADED Time Seen by Provider: 07/07/25 11:40 Source: patient Mode of arrival: ambulatory Limitations: no limitations History of Present Illness HPI Narrative: Lucila is a 65-year-old female patient presenting to the clinic today with complaints of sinus pressure, sinus congestion, ear pain, cough, and dizziness times 13 days. Reports she is coughing up a greenish luu phlegm. States she does feel short of breath and feels like she is having some chest tightness. History of asthma as a child. She is a nonsmoker. No history of COPD. Denies any fevers, chills, or body aches. Has taken Zicam for her symptoms. Attempted to get into her primary care doctor and they told her to come into the [facility] for evaluation. Related Data Home Medications ?Medication ?Instructions ?Recorded ?Confirmed ?Last Taken ?Type vitamin B complex (B 1 tablet PO DAILY 08/23/20 06/20/25 09/24/20 History Complex-Vitamin B12 tablet) aspirin 81 mg tablet 81 mg PO DAILY 09/26/20 06/20/25 09/25/20 History cholecalciferol (vitamin D3) 50 50 mcg PO DAILY 12/13/24 06/20/25 Unknown History mcg (2,000 unit) capsule Allergies Allergy/AdvReac Type Severity Reaction Status Date / Time codeine Allergy Severe Swelling Verified 06/13/25 10:28 desvenlafaxine (From Pristiq) Allergy Severe Swelling Verified 06/13/25 10:28 of Lip/Tongue/Throat escitalopram Allergy Severe Swelling Verified 06/13/25 10:28 of Lip/Tongue/Throat hydrocodone Allergy Severe Nausea and Verified 06/13/25 10:28 Vomiting venlafaxine (From Effexor) Allergy Severe Swelling Verified 06/13/25 10:28 of Lip/Tongue/Throat heparin AdvReac Severe Other Verified 06/13/25 10:28 Heparin Analogues AdvReac Severe Other Verified 06/13/25 10:28 metformin AdvReac Severe Swelling Verified 06/13/25 10:28 alendronate sodium (From AdvReac Intermediate Abdominal Verified 06/13/25 10:28 Fosamax) Pain Review of Systems Review of Systems: Pertinent positives per HPI. Patient denies any fever, chills, rash, headache, visual changes, chest pain, palpitations, nausea, vomiting, diarrhea, constipation, abdominal pain, or any urinary issues. FOR[facility]LY [facility], [facility] Past Medical History Medical History Upper respiratory tract infection URI with cough and congestion Dyspnea Cellulitis Osteoporosis Fatigue Migraine with aura and without status migrainosus, not intractable Palpitation Colon cancer screening Endometriosis Miscarriage PVC's (premature ventricular contractions) Chronic fatigue Fibromyalgia Anxiety Abnormality of heart beat Asthma Wears glasses Claustrophobia History of adverse effect of anesthesia Medial meniscus, posterior horn derangement Depression Surgical History Surgical History History of appendectomy History of hand surgery Previous section x 2 History of dilation and curettage History of breast biopsy H/O laparoscopy History of total hysterectomy History of fusion of cervical spine History of lumbar discectomy Family History Family History Father Esophageal cancer Alcoholism Depression Grandparent Family history of malignant neoplasm of cervix Sibling Breast cancer Alcoholism Asthma Hypertension Heart disease Fibromyalgia Mother Hypertension Other High cholesterol History of esophageal cancer Neuropathy Social History Social History Smoking status: Never smoker Second hand tobacco smoke exposure: No Alcohol intake: current Alcohol use details: rarely Substance use: never Substance use type: does not use Do You Feel Safe in your Home?: Yes Lack of Transportation: No Lack of Food: Never True Current Housing: I Have Housing Concerned About Future Housing: No Difficulty Paying Gas/Electric Bills: No Difficulty Paying for Meds: No Currently Unemployed: No Education: Master's Degree or Higher Difficulty w/ Childcare or Family Care: No Living arrangements: with family Occupation/Education: retired Gender identity (if verbalized by the patient): Female Sexual Orientation (if Verbalized by the Patient): Straight or Heterosexual Spiritual care concerns: No Comments At the time of my signature, I reviewed and agree with the nursing past medical, surgical, social, and family history. There is no relevant family history pertinent to the patient complaint. Exam Narrative: General: Well-developed, well nourished, acutely ill-appearing Head: Normocephalic, atraumatic Eyes: Pupils equally round and reactive to light bilaterally, EOM intact, sclera and conjunctive clear, no discharge, lids normal Ears: TMs intact and congested, ear canals clear, no drainage, grossly hearing normal. Nose: Nares patent, no discharge, moderate anterior inflammation, maxillary and frontal sinus tenderness. Mouth: Oral pharynx without lesions or masses, good dentition, MMM. Neck: Supple, trachea midline, no enlargement of anterior or posterior cervical nodes, no thyroid masses or goiter palpable. Cardio: Regular rate and rhythm, s1 and s2 normal, no murmur appreciated. Resp: Expiratory wheezing throughout lung linn,, no rhonchi, rales, wheezing or rubs Course Course Emergency Course: Portions of this record may have been created with voice recognition software. Level of Care: Express Care Visit Vital Signs Vital signs: Vital Signs Temperature 36.9 C 07/07/25 11:37 Pulse Rate 86 07/07/25 11:37 Respiratory Rate 18 07/07/25 11:37 Blood Pressure 131/67 07/07/25 11:37 Pulse Oximetry 97 07/07/25 11:37 Oxygen Delivery Room Air 07/07/25 11:37 Temperature 36.9 C 07/07/25 11:37 Pulse Rate 86 07/07/25 11:37 Respiratory Rate 18 07/07/25 11:37 Blood Pressure 131/67 07/07/25 11:37 Pulse Oximetry 97 07/07/25 11:37 Oxygen Delivery Room Air 07/07/25 11:37 Vital signs reviewed MDM - URI/Sore Throat MDM Narrative Medical decision making narrative: At the time of visit patient is resting comfortably on the exam table. Patient appears to be nontoxic. complaints of sinus pressure, sinus congestion, ear pain, cough, and dizziness times 13 days. Reports she is coughing up a greenish luu phlegm. States she does feel short of breath and feels like she is having some chest tightness. History of asthma as a child. She is a nonsmoker. No history of COPD. Denies any fevers, chills, or body aches. Has taken Zicam for her symptoms. Attempted to get into her primary care doctor and they told her to come into the [facility] for evaluation. On exam patient has bilateral TMs intact in congestion, no nasal drainage, moderate anterior turbinate inflammation, tenderness to palpation over the maxillary and frontal sinuses, oral pharynx red with postnasal drip, expiratory wheezing throughout lung linn, heart rates regular rate and rhythm. Plan: I suspect patient has bronchitis/sinusitis. Prescription for Tessalon Perles, prednisone, albuterol inhaler, and Augmentin was sent to the pharmacy. Supportive measures were discussed with the patient and they voiced understanding discharge instructions and agrees to treatment plan. Return precautions reviewed Differential Diagnosis Differential diagnosis: Likely upper respiratory infection, otitis media, sinusitis, viral infection, bronchitis, influenza, pharyngitis and other (COVID) Discharge Plan Discharge Clinical Impression: Bronchitis Sinusitis Qualifiers: Sinusitis location: maxillary Chronicity: acute Recurrence: non-recurrent Qualified Code(s): J01.00 - Acute maxillary sinusitis, unspecified Patient Disposition: Home Condition: Stable Instructions: Antibiotic Form, Acute Bronchitis (ED), Rhinosinusitis (ED) Additional Instructions: Take prescription medications only as prescribed-albuterol inhaler, prednisone, Tessalon Perles, and Augmentin Increase fluids and stay well hydrated May take Tylenol or motrin as directed on bottle for pain/fever May use Flonase 1 spray in each nare daily May take OTC antihistamines such as Zyrtec or Claritin daily as directed on bottle May apply Vicks vapor rub to chest to open sinuses Sinus rinses for congestion Cepacol spray, cough drops, throat lozenges, warm tea with honey/lemon, gargle salt water to soothe throat BRAT diet for diarrhea Clear liquids x 24 hours then advance as tolerated for nausea/vomiting Go to the ED if you develop a worsening in your condition- high fever not controlled by Tylenol or Motrin, dehydration, weakness, lethargy, shortness of breath, or chest pain. Follow up with your PCP in 3-5 days if symptoms persist. Patient Language: Slovenian Prescriptions: New amoxicillin-pot clavulanate 875-125 mg tablet 1 tablet PO Q12H 10 Days Qty: 20 0RF prednisone 20 mg tablet 40 mg PO DAILY 5 Days Qty: 10 0RF albuterol sulfate 90 mcg/actuation HFA aerosol inhaler 2 puff inhalation Q4-6H PRN (Reason: shortness of breath or wheezing) 30 Days Qty: 8.5 0RF benzonatate 200 mg capsule 200 mg PO TID 7 Days Qty: 21 0RF No Action vitamin B complex [B Complex-Vitamin B12] Tablet 1 tablet PO DAILY cholecalciferol (vitamin D3) 50 mcg (2,000 unit) capsule 50 mcg PO DAILY aspirin 81 mg Tablet 81 mg PO DAILY estradiol 10 mcg tablet See Rx Instructions .ROUTE .COMPLEX Qty: 24 2RF Dose Instruction: INSERT 1 TABLET VAGINALLY TWICE A WEEK Rx Instructions: INSERT 1 TABLET VAGINALLY TWICE A WEEK propranolol 10 mg tablet See Rx Instructions .ROUTE .COMPLEX Qty: 90 2RF Dose Instruction: TAKE 1 TABLET BY MOUTH DAILY NEEDED Rx Instructions: TAKE 1 TABLET BY MOUTH DAILY NEEDED Follow-up/Referrals: Viktor Barron MD [Primary Care Provider, Internal Medicine] Time of Disposition: 11:54 Quality NIHSS Nursing Documentation ED NIHSS nursing documentation: reviewed/agree
== END 2025-07-07 12:01 | disposition home or self-care (01) ==
PROVIDERS: Emergency Provider Nurse Practitioner Family; PCP Emergency Medicine
DX: J40 Bronchitis, not specified as acute or chronic (principal); J01.00 Acute maxillary sinusitis, unspecified; N80.9 Endometriosis, unspecified; M79.7 Fibromyalgia; J45.909 Unspecified asthma, uncomplicated; M81.0 Age-related osteoporosis without current pathological fracture; Z79.82 Long term (current) use of aspirin
CPT/HCPCS: 99213; G0463